=== PATIENT | female | born 1965 | race Caucasian/White ===

== ENCOUNTER 2016-07-09 10:54 | Outpatient (CLI) | END 2016-07-09 10:55 | disposition home or self-care (01) ==

== ENCOUNTER 2017-01-11 11:16 | Outpatient (CLI) | payer MEDICARE, MEDICAID ==
--- NOTE | 2017-01-11 14:05 | XRAY Report ---
TWO-VIEW CHEST: 01/11/2017 CLINICAL INDICATION: Cough. COMPARISON: 10/02/2015 FINDINGS: Frontal and lateral views of the chest demonstrate a normal cardiac silhouette. The lungs remain hyperinflated, compatible with COPD. No new consolidation, effusion, or pneumothorax is evid ent. IMPRESSION: STABLE COPD. NO SIGNIFICANT INTERVAL CHANGE. JOB #: [id number] EXT JOB #:[id number]
== END 2017-01-11 11:17 | disposition home or self-care (01) ==
LOC: DI.S 11:16
PROVIDERS: ATTEND Nurse Practitioner Family
DX: J44.9 Chronic obstructive pulmonary disease, unspecified (principal)
CPT/HCPCS: 71020

== ENCOUNTER 2017-02-03 10:42 | Outpatient (CLI) | payer MEDICARE, MEDICAID ==
--- NOTE | 2017-02-03 13:35 | XRAY Report ---
THREE VIEW RIGHT ANKLE: 02/03/2017 CLINICAL INDICATION: Joint pain. FINDINGS: AP, lateral, and oblique views of the right ankle demonstrate no evidence of fracture or d islocation. The joint spaces are preserved. No radiopaque foreign body is seen in the soft tissues. M ild osteoarthritis is noted. IMPRESSION: MILD OSTEOARTHRITIC CHANGES. NO EVIDENCE OF FRACTURE. JOB #: [id number] EXT JOB #:[id number]
== END 2017-02-03 10:43 | disposition home or self-care (01) ==
LOC: DI.S 10:42
PROVIDERS: ATTEND Nurse Practitioner Family
DX: M19.071 Primary osteoarthritis, right ankle and foot (principal)

== ENCOUNTER 2017-11-05 11:24 | Outpatient (CLI) | payer MEDICARE, MEDICAID ==
[2017-11-05 18:18] LABS: ALBUMIN 4.3 g/dL (3.2-5.5); ALBUMIN/GLOBULIN RATIO 1.6 (1.0-2.2); BILIRUBIN,TOTAL 0.5 mg/dL (0.2-1.0); CALCIUM 9.3 mg/dL (8.5-10.3); CREATININE 0.7 mg/dL (0.4-1.0)
[2017-11-08 12:31] LABS: HEPATITIS B SURFACE ANTIGEN NON-REACTIVE (NON-REACTIVE); HEPATITIS C ANTIBODY REACTIVE (NON-REACTIVE)
[2017-11-10 15:15] LABS: HCV RNA QNT 5.26 Log IU/mL (NOT DETECTED); HCV RNA QUANT RT PCR 184000 IU/mL (NOT DETECTED)
== END 2017-11-05 11:25 | disposition home or self-care (01) ==
LOC: LAB.F 11:24
PROVIDERS: ATTEND Nurse Practitioner Family
DX: B19.20 Unspecified viral hepatitis C without hepatic coma (principal); R53.83 Other fatigue
CPT/HCPCS: 36415; 80053; 82977; 83540; 84466; 86317; 86704; 86709; 86803; 87340; 87522

== ENCOUNTER 2017-11-17 12:34 | Outpatient (CLI) | payer MEDICARE, MEDICAID ==
[2017-11-17 20:06] LABS: HB2 TOTAL 14.2 g/dL; HEMOGLOBIN A1C 0.55 g/dL; HEMOGLOBIN A1C % 5.7 % (4.6-6.2)
== END 2017-11-17 12:35 | disposition home or self-care (01) ==
LOC: LAB.F 12:34
PROVIDERS: ATTEND Nurse Practitioner Family
DX: R73.9 Hyperglycemia, unspecified (principal)
CPT/HCPCS: 36415; 83036

== ENCOUNTER 2017-11-30 12:17 | Outpatient (CLI) | payer MEDICARE, MEDICAID ==
--- NOTE | 2017-11-30 15:21 | XRAY Report ---
RIGHT RIBS WITH FRONTAL CHEST: 11/30/2017 CLINICAL INDICATION: Right rib pain. FINDINGS: Frontal view of the chest and oblique views of the right ribs were obtained, with a marker at the site of maximal tenderness. There is a minimally displaced fracture of the right 7th rib anteriorly. No pneumothorax is present. The lungs are clear. IMPRESSION: MINIMALLY DISPLACED FRACTURE OF THE RIGHT 7TH RIB ANTERIORLY. NO PNEUMOTHORAX. TD: 11/30/2017 15:15
== END 2017-11-30 12:18 | disposition home or self-care (01) ==
LOC: DI.S 12:17
PROVIDERS: ATTEND Nurse Practitioner Family
DX: S22.31XA Fracture of one rib, right side, initial encounter for closed fracture (principal)

== ENCOUNTER 2018-05-05 16:19 | Outpatient (CLI) | payer MEDICARE, MEDICAID ==
--- NOTE | 2018-05-06 09:50 | XRAY Report ---
Reason: COPD,ACUTE EXACERBATION Procedure Date: 05/05/2018 Accession Number: [id number] / [id number] Procedure: XR - Chest 2 View X-Ray CPT Code: 69159 FULL RESULT: EXAM: CHEST RADIOGRAPHY EXAM DATE: 05/05/2018 04:39 PM. CLINICAL HISTORY: COPD, acute exacerbation. COMPARISON: 11/30/2017 12:36 PM. TECHNIQUE: 2 views. FINDINGS: Lungs/Pleura: Interval development of subtle bibasilar opacities compatible with airspace disease as well as trace pleural effusions in the setting of increased lung volumes and flattened diaphragms compatible with known history of COPD. No pneumothorax. Mediastinum: Heart and mediastinal contours are stable. Other: None. IMPRESSION: Bibasilar patchy new airspace disease on background of COPD. RADIA
== END 2018-05-05 16:20 | disposition home or self-care (01) ==
LOC: DI 16:19
PROVIDERS: ATTEND Nurse Practitioner Family
DX: J98.4 Other disorders of lung (principal); J44.1 Chronic obstructive pulmonary disease with (acute) exacerbation
CPT/HCPCS: 71046

== ENCOUNTER 2018-09-05 14:52 | Emergency (ER) | payer MEDICARE, MEDICAID ==
[2018-09-05 15:38] VITALS: BP 98/67
--- NOTE | 2018-09-05 16:39 | XRAY Report ---
Reason: cough for a week Procedure Date: 09/05/2018 Accession Number: [id number] / [id number] Procedure: XR - Chest 2 View X-Ray CPT Code: 43019 FULL RESULT: EXAM: CHEST RADIOGRAPHY EXAM DATE: 09/05/2018 04:29 PM. CLINICAL HISTORY: Cough for a week. COMPARISON: CHEST 2 VIEW 05/05/2018 4:39 PM. TECHNIQUE: 2 views. FINDINGS: Lungs/Pleura: Hyperexpanded with flattened diaphragm and coarse lung markings typical for COPD or asthma. No definite localized infiltrate, consolidation, effusion, or pneumothorax. Subtle acute infiltrate difficult to exclude. Mediastinum: Heart and mediastinal contours are unremarkable. Other: Osteopenia, mild degenerative changes, old anterior compression fracture of T12. IMPRESSION: Chronic findings. No definite acute disease. RADIA
== END 2018-09-05 17:59 | disposition left against medical advice (07) ==
LOC: ED 14:52
DX: M79.10 Myalgia, unspecified site (principal); R05 Cough; R09.81 Nasal congestion; Z53.21 Procedure and treatment not carried out due to patient leaving prior to being seen by health care provider
CPT/HCPCS: 71046

== ENCOUNTER 2019-07-28 07:00 | Outpatient (CLI) | payer MEDICARE, MEDICAID | END 2019-07-28 23:59 | disposition home or self-care (01) | LOC: LAB.R 07:00 | PROVIDERS: ATTEND Physician Assistant | DX: B19.20 Unspecified viral hepatitis C without hepatic coma (principal) | CPT/HCPCS: 82274 ==

== ENCOUNTER 2019-07-28 10:58 | Outpatient (CLI) | payer MEDICARE, MEDICAID ==
--- NOTE | 2019-07-28 14:39 | Ultrasound Report ---
Reason: HEPATITIS C Procedure Date: 07/28/2019 Accession Number: [id number] / [id number] Procedure: US - Abdomen Limited CPT Code: Final Report FULL RESULT: EXAM: ABDOMEN ULTRASOUND LIMITED, RUQ EXAM DATE: 07/28/2019 12:13 PM. CLINICAL HISTORY: Hepatitis C. Intermittent epigastric pain. Cramping. COMPARISON: None. TECHNIQUE: Real-time scanning was performed with static images obtained. FINDINGS: Liver: Coarse and echogenic hepatic parenchyma. No hepatic lesions. No intrahepatic ductal dilatation. No significant nodularity is identified. 14.1 cm. Main portal vein flow: Hepatopetal. Gallbladder: Normal. No stones, wall thickening, or sonographic Snyder's sign. Biliary System: CBD measures 7 mm. No intrahepatic or extrahepatic ductal dilatation. Other: Visualized pancreas is unremarkable. Pancreatic duct measures 2-3 mm. Right kidney is normal in contour and echotexture and measures 10.8 cm. Prominent extrarenal pelvis. No hydronephrosis. No renal masses or renal calculi. IMPRESSION: 1. Coarse heterogeneous hepatic parenchyma, findings which may be the result of the patient's history of hepatitis C. No significant hepatic nodularity. No hepatic lesions. 2. Normal gallbladder. RADIA
== END 2019-07-28 10:59 | disposition home or self-care (01) ==
LOC: DI 10:58
PROVIDERS: ATTEND Physician Assistant
DX: B19.20 Unspecified viral hepatitis C without hepatic coma (principal)
CPT/HCPCS: 36415; 76705; 86709; 86803; 87902

== ENCOUNTER 2019-11-16 08:21 | Outpatient (CLI) | payer MEDICARE, MEDICAID | END 2019-11-16 08:22 | disposition EMS.NT | LOC: EMS 08:21 | PROVIDERS: ATTEND Surgery | DX: M54.9 Dorsalgia, unspecified (principal) ==

== ENCOUNTER 2019-11-28 14:42 | Outpatient (CLI) | payer MEDICARE, MEDICAID | END 2019-11-28 14:43 | disposition EMS.NT | LOC: EMS 14:42 | PROVIDERS: ATTEND Surgery | DX: Z03.89 Encounter for observation for other suspected diseases and conditions ruled out (principal) ==

== ENCOUNTER 2019-12-11 07:00 | Outpatient (CLI) | payer MEDICARE, MEDICAID | END 2019-12-11 23:59 | disposition home or self-care (01) | LOC: LAB.R 07:00 | PROVIDERS: ATTEND Physician Assistant Medical | DX: Z20.818 Contact with and (suspected) exposure to other bacterial communicable diseases (principal); J44.1 Chronic obstructive pulmonary disease with (acute) exacerbation | CPT/HCPCS: 81599 ==

== ENCOUNTER 2019-12-11 08:00 | Outpatient (CLI) | payer MEDICARE, MEDICAID ==
--- NOTE | 2019-12-11 10:30 | XRAY Report ---
Reason: RIB PAIN Procedure Date: 12/11/2019 Accession Number: [id number] / [id number] Procedure: XRS - Chest 2 View X-Ray CPT Code: 26897 Final Report FULL RESULT: PROCEDURE: Chest 2 View X-Ray INDICATIONS: RIB PAIN TECHNIQUE: 2 view(s) of the chest. COMPARISON: CXR 09/05/2018. FINDINGS: Surgical changes and devices: None. Lungs and pleura: No pleural effusions or pneumothorax. Lungs are clear. Emphysematous change. Mediastinum: Mediastinal contours are normal. Heart size is normal. Bones and chest wall: No suspicious bony abnormalities. Anterior wedging of the thoracolumbar spine vertebral bodies x2, unchanged. Soft tissues appear unremarkable. IMPRESSION: No acute cardiopulmonary abnormality. Emphysematous change. Reviewed by: Hank Zuñiga MD on 12/11/2019 10:28 AM PDT Approved by: Hank Zuñiga MD on 12/11/2019 10:28 AM PDT Station ID: [id number]
--- NOTE | 2019-12-11 10:31 | XRAY Report ---
Reason: RIB PAIN Procedure Date: 12/11/2019 Accession Number: [id number] / [id number] Procedure: XRS - Ribs 2 View LT CPT Code: Final Report FULL RESULT: PROCEDURE: Ribs 2 View LT INDICATIONS: RIB PAIN TECHNIQUE: 2 view(s) of the left ribs. COMPARISON: Same day CXR FINDINGS: Surgical changes and devices: None. Skin markers overlying the inferior left ribs. Lungs and pleura: No pleural effusions or pneumothorax. Lungs are clear. Mediastinum: Mediastinal contours are normal. Heart size is normal. Bones and chest wall: No displaced left rib fractures identified. No suspicious bony abnormalities. Soft tissues appear unremarkable. IMPRESSION: No displaced left rib fractures identified. Reviewed by: Hank Zuñiga MD on 12/11/2019 10:30 AM PDT Approved by: Hank Zuñiga MD on 12/11/2019 10:30 AM PDT Station ID: [id number]
== END 2019-12-11 23:59 | disposition home or self-care (01) ==
LOC: DI.S 08:00
PROVIDERS: ATTEND Physician Assistant Medical
DX: R07.81 Pleurodynia (principal); J43.9 Emphysema, unspecified
CPT/HCPCS: 71046

== ENCOUNTER 2020-01-14 14:31 | Outpatient (CLI) | payer MEDICARE, MEDICAID ==
[2020-01-14 17:39] LABS: BASOPHILS # (AUTO) 0.1 10^3/uL (0.0-0.1); BASOPHILS % (AUTO) 1.2 %; EOSINOPHILS # (AUTO) 0.1 10^3/uL (0.0-0.7); EOSINOPHILS % (AUTO) 2.1 %; LYMPHOCYTES # (AUTO) 1.5 10^3/uL (1.5-3.5); LYMPHOCYTES % (AUTO) 26.2 %; MEAN CORPUSCULAR HEMOGLOBIN 30.3 pg (27.0-31.0); MEAN CORPUSCULAR HGB CONC 31.3 g/dL (32.0-36.0); MEAN CORPUSCULAR VOLUME 96.8 fL (81.0-99.0); MEAN PLATELET VOLUME 9.2 fL (7.9-10.8); MONOCYTES # (AUTO) 0.4 10^3/uL (0.0-1.0); MONOCYTES % (AUTO) 7.2 %; NEUTROPHILS # (AUTO) 3.7 10^3/uL (1.5-6.6); NEUTROPHILS % (AUTO) 62.8 %; PLT - PLATELET COUNT 352 10^3/uL (130-450); RED BLOOD COUNT 4.62 10^6/uL (4.20-5.40); RED CELL DISTRIBUTION WIDTH 12.7 % (12.0-15.0); WHITE BLOOD COUNT 5.8 x10^3/uL (4.8-10.8)
[2020-01-14 17:56] LABS: ALBUMIN 3.9 g/dL (3.2-5.5); ALBUMIN/GLOBULIN RATIO 1.4 (1.0-2.2); BILIRUBIN,TOTAL 0.3 mg/dL (0.2-1.0); CALCIUM 8.5 mg/dL (8.5-10.3); CREATININE 0.5 mg/dL (0.4-1.0); TOTAL PROTEIN 6.7 g/dL (6.7-8.2)
[2020-01-16 12:24] LABS: HEPATITIS B SURFACE ANTIGEN NON-REACTIVE (NON-REACTIVE)
== END 2020-01-14 14:32 | disposition home or self-care (01) ==
LOC: LAB.S 14:31
PROVIDERS: ATTEND Physician Assistant
DX: B19.20 Unspecified viral hepatitis C without hepatic coma (principal)
CPT/HCPCS: 36415; 80053; 85025; 86317; 86704; 86708; 86709; 87340; 87389; 87522; 87902

== ENCOUNTER 2020-03-26 14:56 | Outpatient (CLI) | payer MEDICARE, MEDICAID ==
[2020-03-26 20:14] LABS: BILIRUBIN,DIRECT 0.1 mg/dL (0.1-0.5); BILIRUBIN,TOTAL 0.7 mg/dL (0.2-1.0); TOTAL PROTEIN 7.4 g/dL (6.7-8.2)
== END 2020-03-26 14:57 | disposition home or self-care (01) ==
LOC: LAB.S 14:56
PROVIDERS: ATTEND Physician Assistant
DX: R94.5 Abnormal results of liver function studies (principal); B19.20 Unspecified viral hepatitis C without hepatic coma
CPT/HCPCS: 36415; 80076; 87522

== ENCOUNTER 2020-10-24 08:00 | Outpatient (CLI) | payer MEDICARE, MEDICAID ==
--- NOTE | 2020-10-24 16:34 | XRAY Report ---
PROCEDURE: Hand 3 View LT INDICATIONS: LEFT HAND PAIN TECHNIQUE: 4 views of the hand(s) acquired. COMPARISON: None. FINDINGS: Bones: No fractures or dislocations. No suspicious bony lesions. Chronic corticated ossicle seen p rojecting adjacent to the ulnar styloid which could be old fracture fragment versus loose body. First CMC and triscaphe joint degeneration. Soft tissues: No suspicious soft tissue calcifications. IMPRESSION: Degenerative changes as above, including possible remote fracture fragment versus loose body adjacent to the ulnar styloid. Reviewed by: Bean Garcia MD on 10/24/2020 4:32 PM PDT Approved by: Bean Garcia MD on 10/24/2020 4:32 PM PDT Station ID: [id number]
== END 2020-10-24 23:59 | disposition home or self-care (01) ==
LOC: DI.S 08:00
PROVIDERS: ATTEND Physician Assistant
DX: M18.12 Unilateral primary osteoarthritis of first carpometacarpal joint, left hand (principal); R93.6 Abnormal findings on diagnostic imaging of limbs

== ENCOUNTER 2021-04-09 10:17 | Outpatient (CLI) | payer MEDICARE, MEDICAID ==
--- NOTE | 2021-04-09 16:57 | XRAY Report ---
PROCEDURE: Chest 2 View X-Ray INDICATIONS: BACK PAIN TECHNIQUE: 2 view(s) of the chest. COMPARISON: CT of chest dated 02/12/2020. FINDINGS: Surgical changes and devices: None. Lungs and pleura: No pleural effusions or pneumothorax. Lungs are clear. Mediastinum: Mediastinal contours are normal. Heart size is normal. Bones and chest wall: Chronic appearing anterior wedge compression deformity involving lower thoracic /lumbar spine vertebral body is again seen unchanged from previous CT chest study dated 02/12/2020. De generative disc disease throughout thoracic spine is seen. Soft tissues appear unremarkable. IMPRESSION: No acute cardiopulmonary pathology. Chronic appearing anterior wedge compression deformi ty involving lower thoracic spine and upper lumbar spine unchanged from prior study. Reviewed by: Raudel Esparza MD on 04/09/2021 4:56 PM PDT Approved by: Raudel Esparza MD on 04/09/2021 4:56 PM PDT Station ID: [id number]
== END 2021-04-09 10:19 ==
LOC: DI.S 10:17
PROVIDERS: ATTEND Physician Assistant Medical
DX: R05.9 Cough, unspecified (principal); M54.9 Dorsalgia, unspecified; Z20.822 Contact with and (suspected) exposure to COVID-19
CPT/HCPCS: 71046; U0004

== ENCOUNTER 2021-09-19 08:00 | Outpatient (CLI) | payer MEDICARE, MEDICAID ==
--- NOTE | 2021-09-19 19:25 | XRAY Report ---
PROCEDURE: Ribs w/PA Chest RT INDICATIONS: CONTUSION OF RIGHT BACK WALL OF THORAX TECHNIQUE: 4 views of the right ribs were acquired, along with a single view chest. COMPARISON: 2 view chest x-ray 04/09/2021 FINDINGS: Surgical changes and devices: None. Bones and chest wall: No fractures or dislocations. No suspicious bony lesions. Overlying soft tis sues appear unremarkable. Lungs and pleura: No pleural effusions or pneumothorax. Lungs appear clear. Mediastinum: Mediastinal contours appear normal. Heart size is normal. IMPRESSION: No displaced rib fracture. No acute cardiopulmonary disease process. Reviewed by: Sofy Gonzalez MD, PhD on 09/19/2021 7:23 PM PDT Approved by: Sofy Gonzalez MD, PhD on 09/19/2021 7:23 PM PDT Station ID: [id number]
== END 2021-09-19 23:59 ==
LOC: DI.S 08:00
PROVIDERS: ATTEND Emergency Medicine
DX: S20.221A Contusion of right back wall of thorax, initial encounter (principal)

== ENCOUNTER 2021-12-21 15:13 | Outpatient (CLI) | payer MEDICARE, MEDICAID | END 2021-12-21 15:14 | disposition critical access hospital (66) | LOC: EMS 15:13 | DX: R41.82 Altered mental status, unspecified (principal); R46.89 Other symptoms and signs involving appearance and behavior; Z72.89 Other problems related to lifestyle | CPT/HCPCS: A0425; A0429 ==

== ENCOUNTER 2021-12-21 15:48 | Emergency (ER) | payer MEDICARE, MEDICAID ==
[2021-12-21] MEDS ORDERED: IPRATROPIUM/ALBUTEROL 3 ML NEB INH STA (16:10)
[2021-12-21] MEDS ORDERED: NALOXONE HCL NASAL SPRAY KIT NAS STA (16:44)
--- NOTE | 2021-12-21 16:54 | ED Physician Documentation ---
History of Present Illness - Stated complaint Stated Complaint: AMS - Chief complaint Chief Complaint: Neuro - History obtained from History obtained from: Patient, EMS - History of Present Illness Timing: Today Pain level max: 0 Pain level now: 0 - Additonal information Additional information: Patient is a 56-year-old female who states that she uses heroin and today she states that she did two "hits" of heroin. Apparently her mother found her with decreased responsiveness and called 911. The patient's was reportedly mild drowsy upon EMSs arrival but soon fully awakened. No Narcan was given. Patient initially refused transport to the hospital but then agreed to come to the hospital. Patient states that she feels mildly short of breath sometimes her inhalers help and she has a history of COPD. Not currently feeling short of breath or chest pain. No headache. No other complaints. Does not want to go to rehab. Nothing makes it better or worse Review of Systems Ten Systems: 10 systems reviewed and negative Constitutional: denies: Fever Respiratory: denies: Cough GI: denies: Nausea, Vomiting, Diarrhea Skin: denies: Rash Musculoskeletal: denies: Neck pain, Back pain Neurologic: denies: Headache PD PAST MEDICAL HISTORY - Past Medical History Past Medical History: Yes Cardiovascular: None Respiratory: COPD, Emphysema Endocrine/Autoimmune: None GI: GERD CLIENT LEADER: None : Incontinence HEENT: None Psych: Other Musculoskeletal: Osteoarthritis, Osteoporosis, Chronic back pain - Past Surgical History Past Surgical History: Yes Ortho: Hip replacement, Spine surgery /CLIENT LEADER: Other - Present Medications Home Medications: Ambulatory Orders Medication Instructions Recorded Confirmed Ibuprofen [Motrin] 600 mg PO Q6H PRN #30 tab 10/07/13 05/28/14 Omeprazole 20 mg PO DAILY 10/07/13 05/28/14 Solifenacin Succinate [Vesicare] 10 mg PO DAILY 10/07/13 05/28/14 Venlafaxine ER [Effexor ER] 150 mg PO DAILY 10/07/13 12/21/21 Albuterol Sulfate [Proair Hfa 1 - 2 puffs INH Q4H PRN 12/21/21 12/21/21 Inhaler] Fluticasone/Vilanterol [Breo 1 puffs IH DAILY 12/21/21 12/21/21 Ellipta 100-25 Mcg INH] Ipratropium/Albuterol [Duoneb] 3 ml INH Q6H PRN #30 vial 12/21/21 buPROPion HCL [Bupropion Xl] 150 mg PO DAILY 12/21/21 12/21/21 - Allergies Allergies/Adverse Reactions: Allergies Allergy/AdvReac Type Severity Reaction Status Date / Time acetaminophen AdvReac Severe migraines Verified 12/21/21 16:07 [From Darvocet-N 100] propoxyphene napsylate * AdvReac Severe migraines Verified 12/21/21 16:07 [From DarPROLOR Biotechcet-N 100] - Social History Does the pt smoke?: Yes Smoking Status: Current every day smoker Does the pt drink ETOH?: No Does the pt have substance abuse?: Yes Substance Use and Type: Heroin - Immunizations Immunizations are current?: Yes PD ED PE NORMAL - Vitals Vital signs reviewed: Yes - General General: Alert and oriented X 3, No acute distress, Well developed/nourished - HEENT HEENT: PERRL, Moist mucous membranes, Pharynx benign - Neck Neck: Supple, no meningeal sign - Cardiac Cardiac: RRR, No murmur - Respiratory Respiratory: No respiratory distress, Other (Mild wheezing bilaterally) - Abdomen Abdomen: Soft, Non tender, Non distended - Derm Derm: Warm and dry - Extremities Extremities: No edema - Neuro Neuro: Alert and oriented X 3 - Psych Psych: Normal mood, Normal affect Results - Vitals Vitals: Vital Signs - 24 hr 12/21/21 12/21/21 12/21/21 15:58 16:13 16:39 Temperature 37.0 C Heart Rate 101 H 86 78 Respiratory 16 22 20 Rate Blood Pressure 134/99 H 107/80 O2 Saturation 100 100 12/21/21 17:06 Temperature 36.9 C Heart Rate 105 H Respiratory 18 Rate Blood Pressure 114/84 H O2 Saturation 100 Oxygen O2 Source Room air PD MEDICAL DECISION MAKING - ED course Complexity details: reviewed results, re-evaluated patient, considered differential, d/w patient ED course: Patient was given a DuoNeb treatment and her wheezing resolved. Feels much better. She does not want to go to rehab or detox. Resources were given to the patient. Patient was dispensed a Narcan kit. Patient is otherwise asymptomatic. We will prescribe DuoNeb treatments for her nebulizer machine at home. Patient counseled regarding signs and symptoms for which I believe and urgent re-evaluation would be necessary. Patient with good understanding of and agreement to plan and is comfortable going home at this time This document was made in part using voice recognition software. While efforts are made to proofread this document, sound alike and grammatical errors may occur. Patient is not suicidal or homicidal. Departure - Departure Disposition: 01 Home, Self Care Clinical Impression: Heroin abuse Condition: Good Instructions: ED Narcotic Abuse Follow-Up: HUGO JUAREZ ARNP [Physician No Access] - Within 1 week Prescriptions: Ipratropium/Albuterol [Duoneb] 3 ml INH Q6H PRN #30 vial PRN Reason: dyspnea Comments: Please follow-up with your doctor for further care. Return if you worsen. Your prescription was sent to [facility] in [place]. You are also given naloxone tonight to take home with you. [facility] [address] [address] Discharge Date/Time: 12/21/21 17:10
[2021-12-21 17:07] VITALS: BP 114/84
== END 2021-12-21 17:10 | disposition home or self-care (01) ==
LOC: EDUNIT# → ED 15:48
DX: F11.10 Opioid abuse, uncomplicated (principal); F17.200 Nicotine dependence, unspecified, uncomplicated
CPT/HCPCS: 94640; 99283; G2215

== ENCOUNTER 2022-01-27 11:32 | Outpatient (CLI) | payer MEDICARE, MEDICAID ==
--- NOTE | 2022-01-27 18:20 | XRAY Report ---
PROCEDURE: Thoracic Spine 2 View INDICATIONS: BACK PAIN, THORACIC REGION TECHNIQUE: 4 views of the thoracic spine were acquired. COMPARISON: Chest radiograph dated 04/09/2021 FINDINGS: Bones: Diffuse osteopenia. No acute compression fractures or dislocations. No suspicious bony lesio ns. 12 pairs of ribs are noted, and appear intact where visualized. Redemonstration of chronic ante rior compression deformity of a lower thoracic vertebral body at L1 level. This is not definitively c hanged. New chronic appearing anterior compression deformity of T11. Multilevel thoracic spondylosis seen throughout the imaged spine. Straightening of thoracic kyphosis. Soft tissues: No paravertebral stripe thickening. IMPRESSION: Thoracic spine without acute fracture. Diffuse osteopenia. No acute compression fractures identified. However, there is a new chronic appearing anterior compression deformity of the T11 vertebral body. Stable appearance of anterior compression fracture of L1. Moderate multilevel thoracic spondylosis. Reviewed by: Kermit Keller MD on 01/27/2022 6:19 PM PDT Approved by: Kermit Keller MD on 01/27/2022 6:19 PM PDT Station ID: [id number]
== END 2022-01-27 11:33 | disposition home or self-care (01) ==
LOC: DI.S 11:32
PROVIDERS: ATTEND Registered Nurse
DX: M85.88 Other specified disorders of bone density and structure, other site (principal); M48.54XA Collapsed vertebra, not elsewhere classified, thoracic region, initial encounter for fracture

== ENCOUNTER 2022-04-08 08:00 | Outpatient (CLI) | payer MEDICARE, MEDICAID ==
--- NOTE | 2022-04-08 16:03 | XRAY Report ---
PROCEDURE: Chest 2 View X-Ray INDICATIONS: CHEST PAIN TECHNIQUE: 2 view(s) of the chest. COMPARISON: Chest x-ray 01/27/2022, x-ray spine 01/27/2022 FINDINGS: Surgical changes and devices: None. Lungs and pleura: No pleural effusions or pneumothorax. Lungs are clear. Mediastinum: Mediastinal contours are normal. Heart size is normal. Bones and chest wall: No suspicious bony abnormalities. Soft tissues appear unremarkable. Lower th oracic compression deformity is noted, unchanged 01/27/22. IMPRESSION: No acute pulmonary process. Reviewed by: Dinora Escobar MD on 04/08/2022 4:02 PM PDT Approved by: Dinora Escobar MD on 04/08/2022 4:02 PM PDT Station ID: [id number]
== END 2022-04-08 08:01 | disposition home or self-care (01) ==
LOC: DI.S 08:00
PROVIDERS: ATTEND Physician Assistant
DX: R07.2 Precordial pain (principal); Z87.09 Personal history of other diseases of the respiratory system

== ENCOUNTER 2022-08-02 09:54 | Outpatient (CLI) | payer MEDICARE, MEDICAID | END 2022-08-02 09:55 | disposition critical access hospital (66) | LOC: EMS 09:54 | DX: R06.02 Shortness of breath (principal); R07.89 Other chest pain; R05.9 Cough, unspecified; Z99.81 Dependence on supplemental oxygen | CPT/HCPCS: A0425; A0429 ==

== ENCOUNTER 2022-08-19 11:51 | Emergency (ER) | payer MEDICARE, MEDICAID ==
--- OUTSIDE RECORDS SUMMARY | 2022-08-19 12:56 | EXTERNAL MEDICAL SUMMARY RPT | Continuity of Care Document ---
:1965 Author Organization [place] Address [address] [place] [address] Phone Care Team Providers Name Role Phone Unavailable Unavailable Unavailable Doretha Franco Unavailable Unavailable Allergies No information. Encounters No information. Functional Status No information. Immunizations No information. Medications date description facility 2022-06-09 00:00 mupirocin [facility] [place] 2022-08-14 00:00 propranolol [facility] See 2022-07-29 00:00 prednisone [facility] See 2022-07-18 00:00 prednisone [facility] See 2022-06-09 00:00 buprenorphine-naloxone [facility] & Ancillary Services See 2022-06-10 00:00 buprenorphine-naloxone [facility] & [facility] Services See 2022-06-19 00:00 buprenorphine-naloxone [facility] & [facility] Services See 2022-07-10 00:00 buprenorphine-naloxone [facility] & [facility] Services See 2022-07-15 00:00 buprenorphine-naloxone [facility] & [facility] Services See 2022-07-16 00:00 buprenorphine-naloxone [facility] & [facility]illary Services See 2022-07-18 00:00 buprenorphine-naloxone [facility] & [facility] Services See 2022-07-27 00:00 buprenorphine-naloxone [facility] & Anc[facility] Services See 2022-07-29 00:00 buprenorphine-naloxone [facility] & [facility] Services See 2022-07-30 00:00 buprenorphine-naloxone [facility] & [facility] Services See 2022-08-02 00:00 buprenorphine-naloxone [facility] & [facility] Services See 2022-08-03 00:00 buprenorphine-naloxone [facility] & [facility] Services See 2022-08-12 00:00 buprenorphine-naloxone [facility] & [facility] Services See 2022-08-17 00:00 buprenorphine-naloxone [facility] & Anc[facility] Services See 2022-06-09 00:00 mupirocin [facility] See 2022-06-09 00:00 buprenorphine-naloxone [facility] & [facility] Services See 2022-06-10 00:00 buprenorphine-naloxone [facility] [place] 2022-06-19 00:00 buprenorphine-naloxone [facility] [place] 2022-07-10 00:00 buprenorphine-naloxone [facility] [place] 2022-07-15 00:00 buprenorphine-naloxone [facility] [place] 2022-07-16 00:00 buprenorphine-naloxone [facility] Services See 2022-07-18 00:00 buprenorphine-naloxone [facility] [place] 2022-07-27 00:00 buprenorphine-naloxone [facility] [place] 2022-07-29 00:00 buprenorphine-naloxone [facility] [place] 2022-07-30 00:00 buprenorphine-naloxone [facility] [place] 2022-08-02 00:00 buprenorphine-naloxone [facility] [place] 2022-08-03 00:00 buprenorphine-naloxone [facility] & Anc[facility] Services See 2022-08-12 00:00 buprenorphine-naloxone [facility] & Anc[facility] Services See 2022-08-17 00:00 buprenorphine-naloxone [facility] & Anc[facility] Services See 2022-07-15 00:00 omeprazole magnesium Walk[facility]In [facility] Care & Ancillary Services See 2022-07-29 00:00 prednisone [facility] See 2022-07-18 00:00 prednisone [facility] See 2022-08-14 00:00 propranolol [facility] See 2022-07-29 00:00 prednisone [facility] See 2022-07-29 00:00 prednisone [facility] See 2022-07-18 00:00 prednisone [facility] See 2022-06-09 00:00 mupirocin [facility] [place] [facility] & [facility] Services See 2022-07-18 00:00 prednisone [facility] See 2022-08-14 00:00 propranolol [facility] See 2022-06-09 00:00 clotrimazole Walk[facility] Care & Ancillary Services See 2022-06-09 00:00 buprenorphine-naloxone [facility] [place] 2022-06-10 00:00 buprenorphine-naloxone [facility] [place] 2022-06-19 00:00 buprenorphine-naloxone [facility] & [facility] [place] 2022-07-10 00:00 buprenorphine-naloxone [facility] & Ancillary Services See 2022-07-15 00:00 buprenorphine-naloxone [facility] & Ancillary Services See 2022-07-16 00:00 buprenorphine-naloxone [facility] & Ancillary Services See 2022-07-18 00:00 buprenorphine-naloxone [facility] & Ancillary Services See 2022-07-27 00:00 buprenorphine-naloxone [facility] Care & Ancillary Services See 2022-07-29 00:00 buprenorphine-naloxone [facility] & Ancillary Services See 2022-07-30 00:00 buprenorphine-naloxone [facility] & Anc[facility] Services See 2022-08-02 00:00 buprenorphine-naloxone [facility] & Ancillary Services See 2022-08-03 00:00 buprenorphine-naloxone [facility] & Ancillary Services See 2022-08-12 00:00 buprenorphine-naloxone [facility] & Anc[facility] Services See 2022-08-17 00:00 buprenorphine-naloxone [facility] & Ancillary Services See 2022-06-09 00:00 albuterol sulfate [facility] See 2022-06-09 00:00 albuterol sulfate [facility] See 2022-07-15 00:00 omeprazole magnesium [facility] & Anc[facility] Services See 2022-06-09 00:00 clotrimazole [facility] See 2022-07-15 00:00 omeprazole magnesium [facility] Services See 2022-06-09 00:00 buprenorphine-naloxone [facility] & Ancillary Services See 2022-06-10 00:00 buprenorphine-naloxone [facility] & Anc[facility] Services See 2022-06-19 00:00 buprenorphine-naloxone [facility] & Ancillary Services See 2022-07-10 00:00 buprenorphine-naloxone [facility] & Ancillary Services See 2022-07-15 00:00 buprenorphine-naloxone [facility] & Ancillary Services See 2022-07-16 00:00 buprenorphine-naloxone [facility] & Ancillary Services See 2022-07-18 00:00 buprenorphine-naloxone [facility] & Ancillary Services See 2022-07-27 00:00 buprenorphine-naloxone [facility] & Ancillary Services See 2022-07-29 00:00 buprenorphine-naloxone [facility] & Ancillary Services See 2022-07-30 00:00 buprenorphine-naloxone [facility] & Ancillary Services See 2022-08-02 00:00 buprenorphine-naloxone [facility] & Ancillary Services See 2022-08-03 00:00 buprenorphine-naloxone [facility] & Ancillary Services See 2022-08-12 00:00 buprenorphine-naloxone [facility] & Ancillary Services See 2022-08-17 00:00 buprenorphine-naloxone [facility] & Ancillary Services See 2022-06-09 00:00 albuterol sulfate [facility] See 2022-06-09 00:00 albuterol sulfate [facility] See 2022-08-14 00:00 propranolol [facility] See 2022-06-09 00:00 mupirocin Walk-In Clinic [facility] Care & Ancillary Services See 2022-06-09 00:00 clotrimazole Walk-In Clinic [facility] Care & Ancillary Services See Problems date description facility 2022-06-01 00:00 High risk drug monitoring Walk-In [facility] Primary Care & Ancillary Services [place] 2022-06-01 00:00 Long-term (current) use of other Walk- In Clinic Primary Care medications & Ancillary Services See 2022-06-01 00:00 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[facility]In [facility] Primary Care therapy & Ancillary Services See 2022-06-09 00:00 Chronic obstructive lung disease [facility] Care & Ancillary Services See 2022-06-09 00:00 Backache Walk-In Clinic [facility] Care & Ancillary Services See 2022-06-09 00:00 Repeated prescription [facility] Services [place] 2022-06-09 00:00 Spinal stenosis of lumbar region [facility]- [facility] Primary Care & Ancillary Services See 2022-06-09 00:00 Gastroesophageal reflux disease [facility] n [facility] Primary Care & Ancillary Services See 2022-06-09 00:00 Chronic constipation Walk[facility]In [facility] Care & Ancillary Services See 2022-06-09 00:00 Hallucinogen abuse, unspecified use [facility] & [facility]illary Services See 2022-06-09 00:00 Migraine, unspecified, without Walk-In Clinic Primary Care mention of intractable migraine, & Ancil heike Services See without mention of status migrainosus 2022-06-09 00:00 Carpal tunnel syndrome [facility]In [facility] Primary Care & Ancillary Services See 2022-06-09 00:00 History of substance abuse [facility] & Ancillary Services See 2022-06-09 00:00 Migraine Walk-In Clinic [facility] Care & Ancillary Services See 2022-06-09 00:00 Bone density finding Walk[facility]In [facility] Care & Ancillary Services See 2022-06-09 00:00 Asthma, unspecified Walk-In [facility] Care & Ancillary Services See 2022-06-09 00:00 Chronic airway obstruction, not Walk-I n Clinic Primary Care elsewhere classified & Ancillary Service s See 2022-06-09 00:00 Viral hepatitis C [facility] Services See 2022-06-09 00:00 Esophageal reflux [facility] Services See 2022-06-09 00:00 Nerve injury [facility] Services See 2022-06-09 00:00 Spinal stenosis of lumbar region Walk- In Clinic Primary Care without neurogenic claudication & Ancill [facility] Services See 2022-06-09 00:00 Backache, unspecified Walk[facility]In [facility] & Ancillary Services See 2022-06-09 00:00 Injury to nerves, unspecified site [facility] See 2022-06-09 00:00 Reactive airway disease [facility] Primary Care & Ancillary Services See 2022-06-09 00:00 Unspecified viral hepatitis C Walk-In Clinic Primary Care without hepatic coma & Ancillary Service s [place] 2022-06-09 00:00 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, in remission & Ancillary Ser vices See 2022-06-09 00:00 Borderline personality disorder [facility] Primary Care & Ancillary Services See 2022-06-09 00:00 Migraine, unspecified, not [facility]-In [facility] Primary Care intractable, without status & Ancillary Services See migrainosus 2022-06-09 00:00 Carpal tunnel syndrome, right upper [facility] Primary Care limb & Ancillary Services See 2022-06-09 00:00 Carpal tunnel syndrome, left upper [facility] limb & Ancillary Services See 2022-06-09 00:00 Chronic obstructive pulmonary Walk[facility]In Clinic Primary Care disease, unspecified & Ancillary Service s See 2022-06-09 00:00 Unspecified asthma, uncomplicated [facility] Primary Care & Ancillary Services See 2022-06-09 00:00 Gastro-esophageal reflux disease Walk- In Clinic Primary Care without esophagitis & Ancillary Services See 2022-06-09 00:00 Other constipation [facility] & [facility] Services See 2022-06-09 00:00 Spinal stenosis, lumbar region [facility]In [facility] Primary Care & Ancillary Services See 2022-06-09 00:00 Other dorsalgia [facility] [place] [facility] & [facility] Services See 2022-06-09 00:00 Other specified disorders of bone Walk -In Clinic Primary Care density and structure, right shoulder & Ancillary Services See 2022-06-09 00:00 Other injury of unspecified body Walk- In Clinic Primary Care region & Ancillary Services See 2022-06-09 00:00 Issue of repeat prescriptions [facility] Primary Care & Ancillary Services See 2022-06-09 00:00 Encounter for issue of repeat Walk[facility] Clinic Primary Care prescription & Ancillary Services See 2022-06-10 00:00 Chronic obstructive lung disease [facility]- In [facility] Primary Care & Ancillary Services See 2022-06-10 00:00 Backache Walk-In Clinic [facility] Care & Ancillary Services See 2022-06-10 00:00 Spinal stenosis of lumbar region [facility]- In [facility] Primary Care & Ancillary Services See 2022-06-10 00:00 Gastroesophageal reflux disease [facility] Primary Care & Ancillary Services See 2022-06-10 00:00 Chronic constipation Walk-In [facility] Care & Ancillary Services See 2022-06-10 00:00 Hallucinogen abuse, unspecified use [facility] Primary Care & Ancillary Services See 2022-06-10 00:00 Migraine, unspecified, without Walk[facility]In Clinic Primary Care mention of intractable migraine, & Ancil heike Services See without mention of status migrainosus 2022-06-10 00:00 Carpal tunnel syndrome [facility] Primary Care & Ancillary Services See 2022-06-10 00:00 History of substance abuse Walk-In [facility] Primary Care & Ancillary Services See 2022-06-10 00:00 Migraine Walk-In Clinic [facility] Care & Ancillary Services See 2022-06-10 00:00 Bone density finding Walk-In Clinic Pr [facility] Care & Ancillary Services See 2022-06-10 00:00 Asthma, unspecified Walk-In [facility] Care & Ancillary Services See 2022-06-10 00:00 Chronic airway obstruction, not Walk-I n Clinic Primary Care elsewhere classified & Ancillary Service s See 2022-06-10 00:00 Viral hepatitis C [facility] Services See 2022-06-10 00:00 Esophageal reflux [facility] Anc[facility] Services See 2022-06-10 00:00 Nerve injury [facility] Anc[facility] Services See 2022-06-10 00:00 Spinal stenosis of lumbar region Walk- In Clinic Primary Care without neurogenic claudication & Ancill priya Services See 2022-06-10 00:00 Backache, unspecified [facility] Care & Ancillary Services See 2022-06-10 00:00 Injury to nerves, unspecified site [facility] & [facility] Services See 2022-06-10 00:00 Reactive airway disease [facility] Primary Care & Ancillary Services See 2022-06-10 00:00 Unspecified viral hepatitis C Walk-In Clinic Primary Care without hepatic coma & Ancillary Service s [place] 2022-06-10 00:00 Other psychoactive substance Walk-In C linic Primary Care dependence, in remission & Ancillary Ser vices See 2022-06-10 00:00 Borderline personality disorder Walk-I [facility] Primary Care & Ancillary Services See 2022-06-10 00:00 Migraine, unspecified, not Walk-In [facility] Primary Care intractable, without status & Ancillary Services [place] migrainosus 2022-06-10 00:00 Carpal tunnel syndrome, right upper [facility] Primary Care limb & Ancillary Services See 2022-06-10 00:00 Carpal tunnel syndrome, left upper [facility] Primary Care limb & Ancillary Services See 2022-06-10 00:00 Chronic obstructive pulmonary Walk-In Clinic Primary Care disease, unspecified & Ancillary Service s [place] 2022-06-10 00:00 Unspecified asthma, uncomplicated [facility] Primary Care & Ancillary Services See 2022-06-10 00:00 Gastro-esophageal reflux disease Walk- In Clinic Primary Care without esophagitis & Ancillary Services See 2022-06-10 00:00 Other constipation Walk-In Clinic [facility] Care & Ancillary Services See 2022-06-10 00:00 Spinal stenosis, lumbar region Walk[facility]In Clinic Primary Care & Ancillary Services See 2022-06-10 00:00 Other dorsalgia [facility] & Ancillary Services See 2022-06-10 00:00 Other specified disorders of bone Walk -In Clinic Primary Care density and structure, right shoulder & Ancillary Services See 2022-06-10 00:00 Other injury of unspecified body Walk- In Clinic Primary Care region & Ancillary Services See 2022-06-19 00:00 Chronic obstructive lung disease Walk- In Clinic Primary Care & Ancillary Services See 2022-06-19 00:00 Backache [facility] & Ancillary Services See 2022-06-19 00:00 Spinal stenosis of lumbar region Walk- In [facility] Primary Care & Ancillary Services See 2022-06-19 00:00 Gastroesophageal reflux disease [facility] Primary Care & Ancillary Services See 2022-06-19 00:00 Chronic constipation [facility] & Ancillary Services See 2022-06-19 00:00 Hallucinogen abuse, unspecified use [facility] Primary Care & Ancillary Services See 2022-06-19 00:00 Migraine, unspecified, without Walk-In Clinic Primary Care mention of intractable migraine, & Ancil heike Services See without mention of status migrainosus 2022-06-19 00:00 Carpal tunnel syndrome [facility]In [facility] Primary Care & Ancillary Services See 2022-06-19 00:00 History of substance abuse Walk-In [facility] Primary Care & Ancillary Services See 2022-06-19 00:00 Migraine [facility] [place] [facility] & [facility] Services See 2022-06-19 00:00 Bone density finding [facility] & Ancillary Services See 2022-06-19 00:00 Asthma, unspecified Walk-In Clinic [facility] Care & Ancillary Services See 2022-06-19 00:00 Chronic airway obstruction, not Walk-I n Clinic Primary Care elsewhere classified & Ancillary Service s See 2022-06-19 00:00 Viral hepatitis C [facility] & Ancillary Services See 2022-06-19 00:00 Esophageal reflux [facility] & Ancillary Services See 2022-06-19 00:00 Nerve injury Walk-In Clinic [facility] Care & Ancillary Services See 2022-06-19 00:00 Spinal stenosis of lumbar region Walk- In Clinic Primary Care without neurogenic claudication & Ancill priya Services See 2022-06-19 00:00 Backache, unspecified [facility]In [facility] Care & Ancillary Services See 2022-06-19 00:00 Injury to nerves, unspecified site [facility] & Ancillary Services See 2022-06-19 00:00 Reactive airway disease [facility] Primary Care & Ancillary Services See 2022-06-19 00:00 Unspecified viral hepatitis C Walk-In Clinic Primary Care without hepatic coma & Ancillary Service s See 2022-06-19 00:00 Other psychoactive substance Walk-In C linic Primary Care dependence, in remission & Ancillary Ser vices See 2022-06-19 00:00 Borderline personality disorder [facility]I [facility] Primary Care & Ancillary Services [place] 2022-06-19 00:00 Migraine, unspecified, not Walk-In [facility] Primary Care intractable, without status & Ancillary Services [place] migrainosus 2022-06-19 00:00 Carpal tunnel syndrome, right upper [facility] Primary Care limb & Ancillary Services See 2022-06-19 00:00 Carpal tunnel syndrome, left upper [facility] Primary Care limb & Ancillary Services See 2022-06-19 00:00 Chronic obstructive pulmonary Walk-In Clinic Primary Care disease, unspecified & Ancillary Service s [place] 2022-06-19 00:00 Unspecified asthma, uncomplicated [facility] Primary Care & Ancillary Services See 2022-06-19 00:00 Gastro-esophageal reflux disease Walk- In Clinic Primary Care without esophagitis & Ancillary Services See 2022-06-19 00:00 Other constipation [facility] Care & Ancillary Services See 2022-06-19 00:00 Spinal stenosis, lumbar region [facility]In [facility] Primary Care & Ancillary Services See 2022-06-19 00:00 Other dorsalgia [facility] & Ancillary Services See 2022-06-19 00:00 Other specified disorders of bone Walk -In Clinic Primary Care density and structure, right shoulder & Ancillary Services See 2022-06-19 00:00 Other injury of unspecified body [facility]- In Clinic Primary Care region & Ancillary Services See 2022-07-10 00:00 Chronic obstructive lung disease Walk- In [facility] Primary Care & Ancillary Services See 2022-07-10 00:00 Backache [facility] & Ancillary Services See 2022-07-10 00:00 Spinal stenosis of lumbar region [facility]- In [facility] Primary Care & Ancillary Services See 2022-07-10 00:00 Gastroesophageal reflux disease [facility] Primary Care & Ancillary Services See 2022-07-10 00:00 Chronic constipation Walk-In [facility] Care & Ancillary Services See 2022-07-10 00:00 Hallucinogen abuse, unspecified use [facility] Primary Care & Ancillary Services See 2022-07-10 00:00 Migraine, unspecified, without Walk-In Clinic Primary Care mention of intractable migraine, & Ancil heike Services See without mention of status migrainosus 2022-07-10 00:00 Carpal tunnel syndrome Walk[facility]In [facility] Primary Care & Ancillary Services See 2022-07-10 00:00 History of substance abuse Walk-In [facility] Primary Care & Ancillary Services See 2022-07-10 00:00 Migraine Walk[facility]In [facility] Care & Ancillary Services See 2022-07-10 00:00 Bone density finding Walk-In [facility] Pr [facility] Care & Ancillary Services See 2022-07-10 00:00 Asthma, unspecified [facility] Care & Ancillary Services See 2022-07-10 00:00 Chronic airway obstruction, not Walk-I n Clinic Primary Care elsewhere classified & Ancillary Service s See 2022-07-10 00:00 Viral hepatitis C [facility] & Ancillary Services See 2022-07-10 00:00 Esophageal reflux [facility] & Ancillary Services See 2022-07-10 00:00 Nerve injury [facility] & Ancillary Services See 2022-07-10 00:00 Spinal stenosis of lumbar region Walk- In Clinic Primary Care without neurogenic claudication & Ancill priya Services See 2022-07-10 00:00 Backache, unspecified Walk-In [facility] Care & Ancillary Services See 2022-07-10 00:00 Injury to nerves, unspecified site [facility] & Ancillary Services See 2022-07-10 00:00 Reactive airway disease [facility] Primary Care & Ancillary Services See 2022-07-10 00:00 Unspecified viral hepatitis C Walk-In Clinic Primary Care without hepatic coma & Ancillary Service s See 2022-07-10 00:00 Other psychoactive substance Walk-In C linic Primary Care dependence, in remission & Ancillary Ser vices [place] 2022-07-10 00:00 Borderline personality disorder Walk[facility]I n Clinic Primary Care & Ancillary Services See 2022-07-10 00:00 Migraine, unspecified, not Walk-In [facility] Primary Care intractable, without status & Ancillary Services [place] migrainosus 2022-07-10 00:00 Carpal tunnel syndrome, right upper [facility] Primary Care limb & Ancillary Services See 2022-07-10 00:00 Carpal tunnel syndrome, left upper [facility] Primary Care limb & Ancillary Services See 2022-07-10 00:00 Chronic obstructive pulmonary Walk-In Clinic Primary Care disease, unspecified & Ancillary Service s [place] 2022-07-10 00:00 Unspecified asthma, uncomplicated Walk -In Clinic Primary Care & Ancillary Services See 2022-07-10 00:00 Gastro-esophageal reflux disease Walk- In Clinic Primary Care without esophagitis & Ancillary Services See 2022-07-10 00:00 Other constipation Walk-In Clinic [facility] Care & Ancillary Services See 2022-07-10 00:00 Spinal stenosis, lumbar region Walk-In Clinic Primary Care & Ancillary Services See 2022-07-10 00:00 Other dorsalgia Walk-In Clinic [facility] Care & Ancillary Services See 2022-07-10 00:00 Other specified disorders of bone Walk -In Clinic Primary Care density and structure, right shoulder & Ancillary Services See 2022-07-10 00:00 Other injury of unspecified body Walk- In Clinic Primary Care region & Ancillary Services See 2022-07-13 00:00 Muscle weakness Walk-In [facility] Care & Ancillary Services See 2022-07-13 00:00 Muscle weakness (generalized) Walk-In [facility] Primary Care & Ancillary Services See 2022-07-13 00:00 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, Walk-In Clinic Primary Care supplemental oxygen & Ancillary Services See 2022-07-13 00:00 Dependence on supplemental oxygen Walk -In Clinic Primary Care & Ancillary Services See 2022-07-15 00:00 Chronic obstructive lung disease Walk- In Clinic Primary Care & Ancillary Services See 2022-07-15 00:00 Backache Walk-In [facility] Care & Ancillary Services See 2022-07-15 00:00 Spinal stenosis of lumbar region Walk- In Clinic Primary Care & Ancillary Services See 2022-07-15 00:00 Gastroesophageal reflux disease Walk-I n Clinic Primary Care & Ancillary Services See 2022-07-15 00:00 Chronic constipation Walk-In Clinic [facility] Care & Ancillary Services See 2022-07-15 00:00 Hallucinogen abuse, unspecified use [facility] Primary Care & Ancillary Services See 2022-07-15 00:00 Migraine, unspecified, without Walk-In Clinic Primary Care mention of intractable migraine, & Ancil heike Services See without mention of status migrainosus 2022-07-15 00:00 Carpal tunnel syndrome Walk-In Clinic Primary Care & Ancillary Services See 2022-07-15 00:00 History of substance abuse Walk-In [facility] Primary Care & Ancillary Services See 2022-07-15 00:00 Migraine Walk-In [facility] Care & Ancillary Services See 2022-07-15 00:00 Bone density finding Walk-In Clinic [facility] Care & Ancillary Services See 2022-07-15 00:00 Asthma, unspecified Walk-In [facility] Care & Ancillary Services See 2022-07-15 00:00 Chronic airway obstruction, not Walk-I n Clinic Primary Care elsewhere classified & Ancillary Service s See 2022-07-15 00:00 Viral hepatitis C Walk-In Clinic [facility] Care & Ancillary Services See 2022-07-15 00:00 Esophageal reflux Walk-In [facility] Care & Ancillary Services See 2022-07-15 00:00 Nerve injury Walk-In [facility] Care & Ancillary Services See 2022-07-15 00:00 Spinal stenosis of lumbar region Walk- In Clinic Primary Care without neurogenic claudication & Ancill priya Services See 2022-07-15 00:00 Backache, unspecified Walk-In [facility] Care & Ancillary Services See 2022-07-15 00:00 Injury to nerves, unspecified site [facility] & Ancillary Services See 2022-07-15 00:00 Reactive airway disease Walk-In Clinic Primary Care & Ancillary Services [place] 2022-07-15 00:00 Unspecified viral hepatitis C Walk-In Clinic Primary Care without hepatic coma & Ancillary Service s [place] 2022-07-15 00:00 Other psychoactive substance Walk-In C linic Primary Care dependence, in remission & Ancillary Ser vices [place] 2022-07-15 00:00 Borderline personality disorder Walk-I n Clinic Primary Care & Ancillary Services [place] 2022-07-15 00:00 Migraine, unspecified, not Walk-In [facility] Primary Care intractable, without status & Ancillary Services [place] migrainosus 2022-07-15 00:00 Carpal tunnel syndrome, right upper [facility] Primary Care limb & Ancillary Services See 2022-07-15 00:00 Carpal tunnel syndrome, left upper [facility] Primary [facility] limb & Ancillary Services [place] 2022-07-15 00:00 Chronic obstructive pulmonary Walk-In Clinic Primary Care disease, unspecified & Ancillary Service s [place] 2022-07-15 00:00 Unspecified asthma, uncomplicated Walk -In Clinic Primary Care & Ancillary Services See 2022-07-15 00:00 Gastro-esophageal reflux disease Walk- In Clinic Primary Care without esophagitis & Ancillary Services See 2022-07-15 00:00 Other constipation Walk-In [facility] [place] [facility] Care & Ancillary Services See 2022-07-15 00:00 Spinal stenosis, lumbar region Walk-In Clinic Primary Care & Ancillary Services See 2022-07-15 00:00 Other dorsalgia Walk-In Clinic [place] [facility] Care & Ancillary Services See 2022-07-15 00:00 Other specified disorders of bone Walk -In Clinic Primary Care density and structure, right shoulder & Ancillary Services See 2022-07-15 00:00 Other injury of unspecified body Walk- In Clinic Primary Care region & Ancillary Services See 2022-07-16 00:00 Chronic obstructive lung disease Walk- In Clinic Primary Care & Ancillary Services See 2022-07-16 00:00 Backache Walk-In Clinic [facility] Care & Ancillary Services See 2022-07-16 00:00 Spinal stenosis of lumbar region Walk- In Clinic Primary Care & Ancillary Services See 2022-07-16 00:00 Gastroesophageal reflux disease Walk-I n Clinic Primary Care & Ancillary Services See 2022-07-16 00:00 Chronic constipation Walk-In Clinic [facility] Care & Ancillary Services See 2022-07-16 00:00 Hallucinogen abuse, unspecified use [facility] Primary Care & Ancillary Services See 2022-07-16 00:00 Migraine, unspecified, without Walk-In Clinic Primary Care mention of intractable migraine, & Ancil heike Services See without mention of status migrainosus 2022-07-16 00:00 Carpal tunnel syndrome Walk-In Clinic Primary Care & Ancillary Services See 2022-07-16 00:00 History of substance abuse Walk-In [facility] Primary Care & Ancillary Services See 2022-07-16 00:00 Migraine Walk-In [facility] Care & Ancillary Services See 2022-07-16 00:00 Bone density finding Walk-In Clinic [facility] Care & Ancillary Services See 2022-07-16 00:00 Asthma, unspecified [facility]In [facility] [place] [facility] Care & Ancillary Services See 2022-07-16 00:00 Chronic airway obstruction, not Walk-I n Clinic Primary Care elsewhere classified & Ancillary Service s See 2022-07-16 00:00 Viral hepatitis C Walk-In [facility] Care & Ancillary Services See 2022-07-16 00:00 Esophageal reflux Walk-In [facility] & Ancillary Services See 2022-07-16 00:00 Nerve injury Walk-In Clinic [facility] Care & Ancillary Services See 2022-07-16 00:00 Spinal stenosis of lumbar region Walk- In Clinic Primary Care without neurogenic claudication & Ancill priya Services See 2022-07-16 00:00 Backache, unspecified Walk-In Clinic [facility] Care & Ancillary Services See 2022-07-16 00:00 Injury to nerves, unspecified site [facility] & Ancillary Services See 2022-07-16 00:00 Reactive airway disease Walk-In Clinic Primary Care & Ancillary Services See 2022-07-16 00:00 Unspecified viral hepatitis C Walk-In Clinic Primary Care without hepatic coma & Ancillary Service s See 2022-07-16 00:00 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, in remission & Ancillary Ser vices See 2022-07-16 00:00 Borderline personality disorder Walk-I n Clinic Primary Care & Ancillary Services See 2022-07-16 00:00 Migraine, unspecified, not Walk-In [facility] Primary Care intractable, without status & Ancillary Services See migrainosus 2022-07-16 00:00 Carpal tunnel syndrome, right upper [facility] Clinic Primary Care limb & Ancillary Services See 2022-07-16 00:00 Carpal tunnel syndrome, left upper [facility] Primary Care limb & Ancillary Services See 2022-07-16 00:00 Chronic obstructive pulmonary Walk-In Clinic Primary Care disease, unspecified & Ancillary Service s See 2022-07-16 00:00 Unspecified asthma, uncomplicated Walk -In Clinic Primary Care & Ancillary Services See 2022-07-16 00:00 Gastro-esophageal reflux disease Walk- In Clinic Primary Care without esophagitis & Ancillary Services See 2022-07-16 00:00 Other constipation Walk-In [facility] Care & Ancillary Services See 2022-07-16 00:00 Spinal stenosis, lumbar region Walk-In Clinic Primary Care & Ancillary Services See 2022-07-16 00:00 Other dorsalgia Walk-In [facility] Care & Ancillary Services See 2022-07-16 00:00 Other specified disorders of bone Walk -In Clinic Primary Care density and structure, right shoulder & Ancillary Services See 2022-07-16 00:00 Other injury of unspecified body Walk- In Clinic Primary Care region & Ancillary Services See 2022-07-18 00:00 Chronic obstructive lung disease Walk- In Clinic Primary Care & Ancillary Services See 2022-07-18 00:00 Backache Walk-In [facility] & Ancillary Services See 2022-07-18 00:00 Spinal stenosis of lumbar region Walk- In Clinic Primary Care & Ancillary Services See 2022-07-18 00:00 Gastroesophageal reflux disease Walk-I n Clinic Primary Care & Ancillary Services See 2022-07-18 00:00 Chronic constipation [facility] & Ancillary Services See 2022-07-18 00:00 Hallucinogen abuse, unspecified use [facility] Primary Care & Ancillary Services See 2022-07-18 00:00 Migraine, unspecified, without Walk-In Clinic Primary Care mention of intractable migraine, & Ancil heike Services See without mention of status migrainosus 2022-07-18 00:00 Carpal tunnel syndrome Walk-In Clinic Primary Care & Ancillary Services See 2022-07-18 00:00 History of substance abuse Walk-In [facility] & Ancillary Services See 2022-07-18 00:00 Migraine Walk-In [facility] & Ancillary Services See 2022-07-18 00:00 Bone density finding Walk-In Clinic [facility] Care & Ancillary Services See 2022-07-18 00:00 Asthma, unspecified [facility]In [facility] [place] [facility] Care & Ancillary Services See 2022-07-18 00:00 Chronic airway obstruction, not Walk-I n Clinic Primary Care elsewhere classified & Ancillary Service s See 2022-07-18 00:00 Viral hepatitis C Walk-In [facility] Care & Ancillary Services See 2022-07-18 00:00 Esophageal reflux Walk-In [facility] & Ancillary Services See 2022-07-18 00:00 Nerve injury Walk-In [facility] & Ancillary Services See 2022-07-18 00:00 Spinal stenosis of lumbar region Walk- In Clinic Primary Care without neurogenic claudication & Ancill priya Services See 2022-07-18 00:00 Backache, unspecified Walk-In [facility] Care & Ancillary Services See 2022-07-18 00:00 Injury to nerves, unspecified site [facility] & Ancillary Services See 2022-07-18 00:00 Reactive airway disease Walk-In Clinic Primary Care & Ancillary Services See 2022-07-18 00:00 Unspecified viral hepatitis C Walk-In Clinic Primary Care without hepatic coma & Ancillary Service s See 2022-07-18 00:00 Other psychoactive substance Walk-In C linic Primary Care dependence, in remission & Ancillary Ser vices See 2022-07-18 00:00 Borderline personality disorder Walk-I n Clinic Primary Care & Ancillary Services See 2022-07-18 00:00 Migraine, unspecified, not Walk-In [facility] Primary Care intractable, without status & Ancillary Services See migrainosus 2022-07-18 00:00 Carpal tunnel syndrome, right upper [facility]-In Clinic Primary Care limb & Ancillary Services See 2022-07-18 00:00 Carpal tunnel syndrome, left upper [facility] Primary Care limb & Ancillary Services See 2022-07-18 00:00 Chronic obstructive pulmonary Walk-In Clinic Primary Care disease, unspecified & Ancillary Service s See 2022-07-18 00:00 Unspecified asthma, uncomplicated Walk -In Clinic Primary Care & Ancillary Services See 2022-07-18 00:00 Gastro-esophageal reflux disease Walk- In Clinic Primary Care without esophagitis & Ancillary Services See 2022-07-18 00:00 Other constipation Walk-In [facility] Care & Ancillary Services See 2022-07-18 00:00 Spinal stenosis, lumbar region Walk-In Clinic Primary Care & Ancillary Services See 2022-07-18 00:00 Other dorsalgia Walk-In Clinic [facility] Care & Ancillary Services See 2022-07-18 00:00 Other specified disorders of bone Walk -In Clinic Primary Care density and structure, right shoulder & Ancillary Services See 2022-07-18 00:00 Other injury of unspecified body Walk- In Clinic Primary Care region & Ancillary Services See 2022-07-27 00:00 Chronic obstructive lung disease Walk- In Clinic Primary Care & Ancillary Services See 2022-07-27 00:00 Backache Walk[facility]In [facility] [place] Care & Ancillary Services See 2022-07-27 00:00 Spinal stenosis of lumbar region Walk- In Clinic Primary Care & Ancillary Services See 2022-07-27 00:00 Gastroesophageal reflux disease Walk-I n Clinic Primary Care & Ancillary Services See 2022-07-27 00:00 Chronic constipation Walk-In Clinic [facility] Care & Ancillary Services See 2022-07-27 00:00 Hallucinogen abuse, unspecified use [facility] Primary Care & Ancillary Services See 2022-07-27 00:00 Migraine, unspecified, without Walk-In Clinic Primary Care mention of intractable migraine, & Ancil heike Services See without mention of status migrainosus 2022-07-27 00:00 Carpal tunnel syndrome Walk-In Clinic Primary Care & Ancillary Services See 2022-07-27 00:00 History of substance abuse Walk-In [facility] Primary Care & Ancillary Services See 2022-07-27 00:00 Migraine Walk-In [facility] Care & Ancillary Services See 2022-07-27 00:00 Bone density finding Walk-In Clinic [facility] Care & Ancillary Services See 2022-07-27 00:00 Asthma, unspecified [facility]In [facility] [place] [facility] Care & Ancillary Services See 2022-07-27 00:00 Chronic airway obstruction, not Walk-I n Clinic Primary Care elsewhere classified & Ancillary Service s See 2022-07-27 00:00 Viral hepatitis C Walk-In [facility] Care & Ancillary Services See 2022-07-27 00:00 Esophageal reflux Walk-In [facility] & Ancillary Services See 2022-07-27 00:00 Nerve injury Walk-In [facility] & Ancillary Services See 2022-07-27 00:00 Spinal stenosis of lumbar region Walk- In Clinic Primary Care without neurogenic claudication & Ancill priya Services See 2022-07-27 00:00 Backache, unspecified Walk-In [facility] Care & Ancillary Services See 2022-07-27 00:00 Injury to nerves, unspecified site [facility] Primary [facility] & Ancillary Services See 2022-07-27 00:00 Reactive airway disease Walk-In Clinic Primary Care & Ancillary Services See 2022-07-27 00:00 Unspecified viral hepatitis C Walk-In Clinic Primary Care without hepatic coma & Ancillary Service s See 2022-07-27 00:00 Other psychoactive substance Walk-In C linic Primary Care dependence, in remission & Ancillary Ser vices See 2022-07-27 00:00 Borderline personality disorder Walk-I n Clinic Primary Care & Ancillary Services See 2022-07-27 00:00 Migraine, unspecified, not Walk-In [facility] Primary Care intractable, without status & Ancillary Services See migrainosus 2022-07-27 00:00 Carpal tunnel syndrome, right upper [facility]-In Clinic Primary Care limb & Ancillary Services See 2022-07-27 00:00 Carpal tunnel syndrome, left upper [facility] Primary Care limb & Ancillary Services See 2022-07-27 00:00 Chronic obstructive pulmonary Walk-In Clinic Primary Care disease, unspecified & Ancillary Service s See 2022-07-27 00:00 Unspecified asthma, uncomplicated Walk -In Clinic Primary Care & Ancillary Services See 2022-07-27 00:00 Gastro-esophageal reflux disease Walk- In Clinic Primary Care without esophagitis & Ancillary Services See 2022-07-27 00:00 Other constipation Walk-In [facility] Care & Ancillary Services See 2022-07-27 00:00 Spinal stenosis, lumbar region Walk-In Clinic Primary Care & Ancillary Services See 2022-07-27 00:00 Other dorsalgia Walk-In Clinic [facility] Care & Ancillary Services See 2022-07-27 00:00 Other specified disorders of bone Walk -In Clinic Primary Care density and structure, right shoulder & Ancillary Services See 2022-07-27 00:00 Other injury of unspecified body Walk- In Clinic Primary Care region & Ancillary Services See 2022-07-29 00:00 Chronic obstructive lung disease Walk- In Clinic Primary Care & Ancillary Services See 2022-07-29 00:00 Backache Walk-In Clinic [facility] Care & Ancillary Services See 2022-07-29 00:00 Spinal stenosis of lumbar region Walk- In Clinic Primary Care & Ancillary Services See 2022-07-29 00:00 Gastroesophageal reflux disease Walk-I n Clinic Primary Care & Ancillary Services See 2022-07-29 00:00 Chronic constipation Walk-In Clinic [facility] Care & Ancillary Services See 2022-07-29 00:00 Hallucinogen abuse, unspecified use [facility] Primary Care & Ancillary Services See 2022-07-29 00:00 Migraine, unspecified, without Walk-In Clinic Primary Care mention of intractable migraine, & Ancil heike Services See without mention of status migrainosus 2022-07-29 00:00 Carpal tunnel syndrome Walk-In Clinic Primary Care & Ancillary Services See 2022-07-29 00:00 History of substance abuse Walk-In [facility] Primary Care & Ancillary Services See 2022-07-29 00:00 Migraine Walk[facility]In [facility] [place] Care & Ancillary Services See 2022-07-29 00:00 Bone density finding Walk-In Clinic [facility] Care & Ancillary Services See 2022-07-29 00:00 Asthma, unspecified Walk-In Clinic [facility] Care & Ancillary Services See 2022-07-29 00:00 Chronic airway obstruction, not Walk-I n Clinic Primary Care elsewhere classified & Ancillary Service s See 2022-07-29 00:00 Viral hepatitis C Walk-In [facility] Care & Ancillary Services See 2022-07-29 00:00 Esophageal reflux Walk-In [facility] Care & Ancillary Services See 2022-07-29 00:00 Nerve injury Walk-In [facility] & Ancillary Services See 2022-07-29 00:00 Spinal stenosis of lumbar region Walk- In Clinic Primary Care without neurogenic claudication & Ancill priya Services See 2022-07-29 00:00 Backache, unspecified Walk-In [facility] Care & Ancillary Services See 2022-07-29 00:00 Injury to nerves, unspecified site [facility] Primary Care & Ancillary Services See 2022-07-29 00:00 Reactive airway disease Walk-In Clinic Primary Care & Ancillary Services See 2022-07-29 00:00 Unspecified viral hepatitis C Walk-In Clinic Primary Care without hepatic coma & Ancillary Service s See 2022-07-29 00:00 Other psychoactive substance Walk-In C linic Primary Care dependence, in remission & Ancillary Ser vices See 2022-07-29 00:00 Borderline personality disorder Walk-I n [facility] Primary Care & Ancillary Services See 2022-07-29 00:00 Migraine, unspecified, not [facility] Primary Care intractable, without status & Ancillary Services See migrainosus 2022-07-29 00:00 Carpal tunnel syndrome, right upper [facility]-In Clinic Primary Care limb & Ancillary Services See 2022-07-29 00:00 Carpal tunnel syndrome, left upper [facility] Primary Care limb & Ancillary Services See 2022-07-29 00:00 Chronic obstructive pulmonary Walk-In Clinic Primary Care disease, unspecified & Ancillary Service s See 2022-07-29 00:00 Unspecified asthma, uncomplicated Walk -In Clinic Primary Care & Ancillary Services [place] 2022-07-29 00:00 Gastro-esophageal reflux disease Walk- In Clinic Primary Care without esophagitis & Ancillary Services See 2022-07-29 00:00 Other constipation [facility] [place] Care & Ancillary Services See 2022-07-29 00:00 Spinal stenosis, lumbar region Walk-In Clinic Primary Care & Ancillary Services See 2022-07-29 00:00 Other dorsalgia [facility] [place] Care & Ancillary Services See 2022-07-29 00:00 Other specified disorders of bone Walk -In Clinic Primary Care density and structure, right shoulder & Ancillary Services See 2022-07-29 00:00 Other injury of unspecified body Walk- In Clinic Primary Care region & Ancillary Services See 2022-07-30 00:00 Chronic obstructive lung disease Walk- In Clinic Primary Care & Ancillary Services See 2022-07-30 00:00 Backache [facility] [place] [facility] & Ancillary Services See 2022-07-30 00:00 Spinal stenosis of lumbar region Walk- In Clinic Primary Care & Ancillary Services See 2022-07-30 00:00 Gastroesophageal reflux disease Walk-I n Clinic Primary Care & Ancillary Services See 2022-07-30 00:00 Chronic constipation [facility] Ancillary Services See 2022-07-30 00:00 Hallucinogen abuse, unspecified use [facility] Primary Care & Ancillary Services See 2022-07-30 00:00 Migraine, unspecified, without Walk-In Clinic Primary Care mention of intractable migraine, & Ancil heike Services See without mention of status migrainosus 2022-07-30 00:00 Carpal tunnel syndrome Walk-In Clinic Primary Care & Ancillary Services See 2022-07-30 00:00 History of substance abuse Walk-In [facility] Primary Care & Ancillary Services See 2022-07-30 00:00 Migraine Walk-In Clinic [facility] Care & Ancillary Services See 2022-07-30 00:00 Bone density finding [facility] Ancillary Services See 2022-07-30 00:00 Asthma, unspecified Walk-In Clinic [facility] Care & Ancillary Services See 2022-07-30 00:00 Chronic airway obstruction, not Walk-I n Clinic Primary Care elsewhere classified & Ancillary Service s See 2022-07-30 00:00 Viral hepatitis C Walk-In Clinic [facility] Care & Ancillary Services See 2022-07-30 00:00 Esophageal reflux Walk-In Clinic [facility] Care & Ancillary Services See 2022-07-30 00:00 Nerve injury Walk-In Clinic [facility] Care & Ancillary Services See 2022-07-30 00:00 Spinal stenosis of lumbar region Walk- In Clinic Primary Care without neurogenic claudication & Ancill priya Services See 2022-07-30 00:00 Backache, unspecified Walk-In Clinic [facility] Care & Ancillary Services See 2022-07-30 00:00 Injury to nerves, unspecified site [facility] & Ancillary Services See 2022-07-30 00:00 Reactive airway disease Walk-In Clinic Primary Care & Ancillary Services See 2022-07-30 00:00 Unspecified viral hepatitis C Walk-In Clinic Primary Care without hepatic coma & Ancillary Service s See 2022-07-30 00:00 Other psychoactive substance Walk-In C linic Primary Care dependence, in remission & Ancillary Ser vices See 2022-07-30 00:00 Borderline personality disorder Walk-I n [facility] Primary Care & Ancillary Services See 2022-07-30 00:00 Migraine, unspecified, not Walk-In [facility] Primary Care intractable, without status & Ancillary Services [place] migrainosus 2022-07-30 00:00 Carpal tunnel syndrome, right upper [facility]-In Clinic Primary Care limb & Ancillary Services See 2022-07-30 00:00 Carpal tunnel syndrome, left upper [facility] Primary Care limb & Ancillary Services See 2022-07-30 00:00 Chronic obstructive pulmonary Walk-In Clinic Primary Care disease, unspecified & Ancillary Service s [place] 2022-07-30 00:00 Unspecified asthma, uncomplicated Walk -In Clinic Primary Care & Ancillary Services See 2022-07-30 00:00 Gastro-esophageal reflux disease Walk- In Clinic Primary Care without esophagitis & Ancillary Services See 2022-07-30 00:00 Other constipation Walk-In Clinic [facility] Care & Ancillary Services See 2022-07-30 00:00 Spinal stenosis, lumbar region Walk-In Clinic Primary Care & Ancillary Services See 2022-07-30 00:00 Other dorsalgia Walk-In [facility] & Ancillary Services See 2022-07-30 00:00 Other specified disorders of bone Walk -In Clinic Primary Care density and structure, right shoulder & Ancillary Services See 2022-07-30 00:00 Other injury of unspecified body Walk- In Clinic Primary Care region & Ancillary Services See 2022-08-02 00:00 Chronic obstructive lung disease Walk- In Clinic Primary Care & Ancillary Services See 2022-08-02 00:00 Backache Walk-In [facility] Care & Ancillary Services See 2022-08-02 00:00 Spinal stenosis of lumbar region Walk- In Clinic Primary Care & Ancillary Services See 2022-08-02 00:00 Gastroesophageal reflux disease Walk-I n Clinic Primary Care & Ancillary Services See 2022-08-02 00:00 Chronic constipation Walk-In Clinic [facility] Care & Ancillary Services See 2022-08-02 00:00 Hallucinogen abuse, unspecified use [facility] Primary Care & Ancillary Services See 2022-08-02 00:00 Migraine, unspecified, without Walk-In Clinic Primary Care mention of intractable migraine, & Ancil heike Services See without mention of status migrainosus 2022-08-02 00:00 Carpal tunnel syndrome Walk-In Clinic Primary Care & Ancillary Services See 2022-08-02 00:00 History of substance abuse [facility]-In [facility] Care & Ancillary Services See 2022-08-02 00:00 Migraine Walk-In Clinic [facility] Care & Ancillary Services See 2022-08-02 00:00 Bone density finding [facility] & Ancillary Services See 2022-08-02 00:00 Asthma, unspecified [facility] Care & Ancillary Services See 2022-08-02 00:00 Chronic airway obstruction, not [facility] Primary Care elsewhere classified & Ancillary Service s See 2022-08-02 00:00 Viral hepatitis C [facility] Care & Ancillary Services See 2022-08-02 00:00 Esophageal reflux [facility] Care & Ancillary Services See 2022-08-02 00:00 Nerve injury [facility] Care & Ancillary Services See 2022-08-02 00:00 Spinal stenosis of lumbar region [facility]- [facility] Primary Care without neurogenic claudication & Ancill priya Services See 2022-08-02 00:00 Backache, unspecified [facility] Care & Ancillary Services See 2022-08-02 00:00 Injury to nerves, unspecified site [facility] See 2022-08-02 00:00 Reactive airway disease [facility] Primary Care & Ancillary Services See 2022-08-02 00:00 Unspecified viral hepatitis C [facility] Primary Care without hepatic coma & Ancillary Service s See 2022-08-02 00:00 Other psychoactive substance [facility]In C linic Primary Care dependence, in remission & Ancillary Ser vices See 2022-08-02 00:00 Borderline personality disorder [facility] Primary Care & Ancillary Services See 2022-08-02 00:00 Migraine, unspecified, not [facility] Primary Care intractable, without status & Ancillary Services [place] migrainosus 2022-08-02 00:00 Carpal tunnel syndrome, right upper [facility] Care limb & Ancillary Services See 2022-08-02 00:00 Carpal tunnel syndrome, left upper [facility] limb & Ancillary Services See 2022-08-02 00:00 Chronic obstructive pulmonary [facility] Primary Care disease, unspecified & Ancillary Service s [place] 2022-08-02 00:00 Unspecified asthma, uncomplicated [facility] Primary Care & Ancillary Services See 2022-08-02 00:00 Gastro-esophageal reflux disease [facility]- [facility] Primary Care without esophagitis & Ancillary Services See 2022-08-02 00:00 Other constipation Walk[facility]In [facility] Care & Ancillary Services See 2022-08-02 00:00 Spinal stenosis, lumbar region [facility] Primary Care & Ancillary Services See 2022-08-02 00:00 Other dorsalgia [facility] Care & Ancillary Services See 2022-08-02 00:00 Other specified disorders of bone [facility] Primary Care density and structure, right shoulder & Ancillary Services See 2022-08-02 00:00 Other injury of unspecified body [facility] Primary Care region & Ancillary Services See 2022-08-03 00:00 Chronic obstructive lung disease [facility] Primary Care & Ancillary Services See 2022-08-03 00:00 Backache Walk[facility] Care & Ancillary Services See 2022-08-03 00:00 Spinal stenosis of lumbar region [facility] Primary Care & Ancillary Services See 2022-08-03 00:00 Gastroesophageal reflux disease [facility] Primary Care & Ancillary Services See 2022-08-03 00:00 Chronic constipation [facility] Care & Ancillary Services See 2022-08-03 00:00 Hallucinogen abuse, unspecified use [facility] & Ancillary Services See 2022-08-03 00:00 Migraine, unspecified, without [facility] Primary Care mention of intractable migraine, & Ancil heike Services See without mention of status migrainosus 2022-08-03 00:00 Carpal tunnel syndrome [facility] Primary Care & Ancillary Services See 2022-08-03 00:00 History of substance abuse [facility] Primary Care & Ancillary Services See 2022-08-03 00:00 Migraine [facility] & Ancillary Services See 2022-08-03 00:00 Bone density finding [facility] & Ancillary Services See 2022-08-03 00:00 Asthma, unspecified [facility] Care & Ancillary Services See 2022-08-03 00:00 Chronic airway obstruction, not [facility] Primary Care elsewhere classified & Ancillary Service s See 2022-08-03 00:00 Viral hepatitis C [facility] & Ancillary Services See 2022-08-03 00:00 Esophageal reflux [facility] & Ancillary Services See 2022-08-03 00:00 Nerve injury [facility] & Ancillary Services See 2022-08-03 00:00 Spinal stenosis of lumbar region [facility] Primary Care without neurogenic claudication & Ancill priya Services See 2022-08-03 00:00 Backache, unspecified [facility] Care & Ancillary Services See 2022-08-03 00:00 Injury to nerves, unspecified site [facility] Services See 2022-08-03 00:00 Reactive airway disease [facility] Primary Care & Ancillary Services See 2022-08-03 00:00 Unspecified viral hepatitis C [facility] Primary Care without hepatic coma & Ancillary Service s See 2022-08-03 00:00 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, in remission & Ancillary Ser vices See 2022-08-03 00:00 Borderline personality disorder [facility] Primary Care & Ancillary Services See 2022-08-03 00:00 Migraine, unspecified, not [facility] Primary Care intractable, without status & Ancillary Services See migrainosus 2022-08-03 00:00 Carpal tunnel syndrome, right upper [facility] Primary Care limb & Ancillary Services See 2022-08-03 00:00 Carpal tunnel syndrome, left upper [facility] Primary Care limb & Ancillary Services See 2022-08-03 00:00 Chronic obstructive pulmonary [facility] Primary Care disease, unspecified & Ancillary Service s See 2022-08-03 00:00 Unspecified asthma, uncomplicated [facility] Primary Care & Ancillary Services See 2022-08-03 00:00 Gastro-esophageal reflux disease [facility]- [facility] Primary Care without esophagitis & Ancillary Services See 2022-08-03 00:00 Other constipation [facility] Care & Ancillary Services See 2022-08-03 00:00 Spinal stenosis, lumbar region [facility] Primary Care & Ancillary Services See 2022-08-03 00:00 Other dorsalgia [facility] & Ancillary Services See 2022-08-03 00:00 Other specified disorders of bone [facility] Primary Care density and structure, right shoulder & Ancillary Services See 2022-08-03 00:00 Other injury of unspecified body [facility] Primary Care region & Ancillary Services See 2022-08-12 00:00 Chronic obstructive lung disease [facility] Primary Care & Ancillary Services See 2022-08-12 00:00 Backache [facility] & Ancillary Services See 2022-08-12 00:00 Spinal stenosis of lumbar region [facility] Primary Care & Ancillary Services See 2022-08-12 00:00 Gastroesophageal reflux disease [facility] Primary Care & Ancillary Services See 2022-08-12 00:00 Chronic constipation [facility] & Ancillary Services See 2022-08-12 00:00 Hallucinogen abuse, unspecified use [facility] Care & Ancillary Services See 2022-08-12 00:00 Migraine, unspecified, without [facility] Primary Care mention of intractable migraine, & Ancil heike Services See without mention of status migrainosus 2022-08-12 00:00 Carpal tunnel syndrome [facility] Primary Care & Ancillary Services See 2022-08-12 00:00 History of substance abuse [facility] Care & Ancillary Services See 2022-08-12 00:00 Migraine [facility] & Ancillary Services See 2022-08-12 00:00 Bone density finding [facility] Care & Ancillary Services See 2022-08-12 00:00 Asthma, unspecified [facility] & Ancillary Services See 2022-08-12 00:00 Chronic airway obstruction, not [facility] Primary Care elsewhere classified & Ancillary Service s See 2022-08-12 00:00 Viral hepatitis C [facility] & Ancillary Services See 2022-08-12 00:00 Esophageal reflux [facility] & Ancillary Services See 2022-08-12 00:00 Nerve injury [facility] & Ancillary Services See 2022-08-12 00:00 Spinal stenosis of lumbar region [facility] Primary Care without neurogenic claudication & Ancill priya Services See 2022-08-12 00:00 Backache, unspecified [facility] Care & Ancillary Services See 2022-08-12 00:00 Injury to nerves, unspecified site [facility] & [facility] Services See 2022-08-12 00:00 Reactive airway disease [facility] Primary Care & Ancillary Services See 2022-08-12 00:00 Unspecified viral hepatitis C [facility] Primary Care without hepatic coma & Ancillary Service s See 2022-08-12 00:00 Other psychoactive substance [facility] C l[facility] Primary Care dependence, in remission & Ancillary Ser vices See 2022-08-12 00:00 Borderline personality disorder [facility] Primary Care & Ancillary Services See 2022-08-12 00:00 Migraine, unspecified, not [facility] Primary Care intractable, without status & Ancillary Services See migrainosus 2022-08-12 00:00 Carpal tunnel syndrome, right upper [facility] Primary Care limb & Ancillary Services See 2022-08-12 00:00 Carpal tunnel syndrome, left upper [facility] Primary Care limb & Ancillary Services See 2022-08-12 00:00 Chronic obstructive pulmonary [facility] Primary Care disease, unspecified & Ancillary Service s See 2022-08-12 00:00 Unspecified asthma, uncomplicated [facility] Primary Care & Ancillary Services See 2022-08-12 00:00 Gastro-esophageal reflux disease [facility]- In [facility] Primary Care without esophagitis & Ancillary Services See 2022-08-12 00:00 Other constipation [facility] [place] [facility] & Ancillary Services See 2022-08-12 00:00 Spinal stenosis, lumbar region [facility] Primary Care & Ancillary Services See 2022-08-12 00:00 Other dorsalgia Walk[facility]In Clinic [facility] Care & Ancillary Services See 2022-08-12 00:00 Other specified disorders of bone [facility] Primary Care density and structure, right shoulder & Ancillary Services See 2022-08-12 00:00 Other injury of unspecified body [facility] Primary Care region & Ancillary Services See 2022-08-17 00:00 Chronic obstructive lung disease [facility] Primary Care & Ancillary Services See 2022-08-17 00:00 Backache Walk[facility]In Clinic [facility] Care & Ancillary Services See 2022-08-17 00:00 Spinal stenosis of lumbar region [facility] Primary Care & Ancillary Services See 2022-08-17 00:00 Gastroesophageal reflux disease [facility] Primary Care & Ancillary Services See 2022-08-17 00:00 Chronic constipation [facility] & Ancillary Services See 2022-08-17 00:00 Hallucinogen abuse, unspecified use [facility] Primary Care & Ancillary Services See 2022-08-17 00:00 Migraine, unspecified, without [facility] Primary Care mention of intractable migraine, & Ancil heike Services See without mention of status migrainosus 2022-08-17 00:00 Carpal tunnel syndrome [facility] Primary Care & Ancillary Services See 2022-08-17 00:00 History of substance abuse Walk-In [facility] Primary Care & Ancillary Services See 2022-08-17 00:00 Migraine [facility] Care & Ancillary Services See 2022-08-17 00:00 Bone density finding [facility] Care & Ancillary Services See 2022-08-17 00:00 Asthma, unspecified [facility] Care & Ancillary Services See 2022-08-17 00:00 Chronic airway obstruction, not [facility] Primary Care elsewhere classified & Ancillary Service s See 2022-08-17 00:00 Viral hepatitis C [facility] & Ancillary Services See 2022-08-17 00:00 Esophageal reflux [facility] & Ancillary Services See 2022-08-17 00:00 Nerve injury [facility] & Ancillary Services See 2022-08-17 00:00 Spinal stenosis of lumbar region [facility] Primary Care without neurogenic claudication & Ancill priya Services See 2022-08-17 00:00 Backache, unspecified [facility] Care & Ancillary Services See 2022-08-17 00:00 Injury to nerves, unspecified site [facility] & Ancillary Services See 2022-08-17 00:00 Reactive airway disease [facility] Primary Care & Ancillary Services See 2022-08-17 00:00 Unspecified viral hepatitis C [facility] Primary Care without hepatic coma & Ancillary Service s [place] 2022-08-17 00:00 Other psychoactive substance [facility] C l[facility] Primary Care dependence, in remission & Ancillary Ser vices See 2022-08-17 00:00 Borderline personality disorder [facility] Primary Care & Ancillary Services See 2022-08-17 00:00 Migraine, unspecified, not [facility] Primary Care intractable, without status & Ancillary Services See migrainosus 2022-08-17 00:00 Carpal tunnel syndrome, right upper [facility] Primary Care limb & Ancillary Services See 2022-08-17 00:00 Carpal tunnel syndrome, left upper [facility] Primary Care limb & Ancillary Services See 2022-08-17 00:00 Chronic obstructive pulmonary [facility] Primary Care disease, unspecified & Ancillary Service s [place] 2022-08-17 00:00 Unspecified asthma, uncomplicated [facility] Primary Care & Ancillary Services See 2022-08-17 00:00 Gastro-esophageal reflux disease [facility]- In [facility] Primary Care without esophagitis & Ancillary Services See 2022-08-17 00:00 Other constipation [facility] Care & Ancillary Services See 2022-08-17 00:00 Spinal stenosis, lumbar region [facility] Primary Care & Ancillary Services See 2022-08-17 00:00 Other dorsalgia Walk[facility]In Clinic [facility] Care & Ancillary Services See 2022-08-17 00:00 Other specified disorders of bone [facility] Primary Care density and structure, right shoulder & Ancillary Services See 2022-08-17 00:00 Other injury of unspecified body [facility]- [facility] Primary Care region & Ancillary Services See Procedures date description facility 2022-06-09 00:00 Visit Code Hold [facility] & Ancillary Services See 2022-07-13 00:00 Visit Code Hold [facility] & Ancillary Services See Results/Labs test date author facility value unit interpret ation Result panel 1 (unknown) (no date) (unknown) Walk-In (no value) (units (unk nown) Clinic Primary unknown) Care & Ancillary Services See Result panel 2 (unknown) (no date) (unknown) Walk-In (no value) (units ([facility] nown) Clinic Primary unknown) Care & Ancillary Services See Result panel 3 (unknown) (no date) (unknown) Walk-In (no value) (units ([facility] nown) Clinic Primary unknown) Care & Ancillary Services See Result panel 4 (unknown) (no date) (unknown) Walk-In (no value) (units ([facility] nown) Clinic Primary unknown) Care & Ancillary Services See Result panel 5 (unknown) (no date) (unknown) Walk-In (no value) (units ([facility] nown) Clinic Primary unknown) Care & Ancillary Services See Result panel 6 (unknown) (no date) (unknown) Walk-In (no value) (units ([facility] nown) Clinic Primary unknown) Care & Ancillary Services See Result panel 7 (unknown) (no date) (unknown) Walk-In (no value) (units (unk nown) Clinic Primary unknown) Care & Ancillary Services See Result panel 8 (unknown) (no date) (unknown) Walk-In (no value) (units (unk nown) Clinic Primary unknown) Care & Ancillary Services See Result panel 9 (unknown) (no date) (unknown) Walk-In (no value) (units (unk nown) Clinic Primary unknown) Care & Ancillary Services See Result panel 10 (unknown) (no date) (unknown) Walk-In (no value) (units (unk nown) Clinic Primary unknown) Care & Ancillary Services See Result panel 11 (unknown) (no date) (unknown) Walk-In (no value) (units (unk nown) Clinic Primary unknown) Care & Ancillary Services See Result panel 12 (unknown) (no date) (unknown) Walk-In (no value) (units (unk nown) Clinic Primary unknown) Care & Ancillary Services See Result panel 13 (unknown) (no date) (unknown) Walk-In (no value) (units (unk nown) Clinic Primary unknown) Care & Ancillary Services See Result panel 14 (unknown) (no date) (unknown) Walk-In (no value) (units (unk nown) Clinic Primary unknown) Care & Ancillary Services See Result panel 15 (unknown) (no date) (unknown) Walk-In (no value) (units (unk nown) Clinic Primary unknown) Care & Ancillary Services See Result panel 16 (unknown) (no date) (unknown) Walk-In (no value) (units (unk nown) Clinic Primary unknown) Care & Ancillary Services See Result panel 17 (unknown) (no date) (unknown) Walk-In (no value) (units ([facility] nown) Clinic Primary unknown) Care & Ancillary Services See Result panel 18 (unknown) (no date) (unknown) Walk-In (no value) (units (unk nown) Clinic Primary unknown) Care & Ancillary Services See Result panel 19 (unknown) (no date) (unknown) Walk-In (no value) (units (unk nown) Clinic Primary unknown) Care & Ancillary Services See Result panel 20 (unknown) (no date) (unknown) Walk-In (no value) (units ([facility] nown) Clinic Primary unknown) Care & Ancillary Services See Result panel 21 (unknown) (no date) (unknown) Walk-In (no value) (units (unk nown) Clinic Primary unknown) Care & Ancillary Services See Result panel 22 (unknown) (no date) (unknown) Walk-In (no value) (units (unk nown) Clinic Primary unknown) Care & Ancillary Services See Result panel 23 (unknown) (no date) (unknown) Walk-In (no value) (units (unk nown) Clinic Primary unknown) Care & Ancillary Services See Result panel 24 (unknown) (no date) (unknown) Walk-In (no value) (units (unk nown) Clinic Primary unknown) Care & Ancillary Services See Result panel 25 (unknown) (no date) (unknown) Walk-In (no value) (units (unk nown) Clinic Primary unknown) Care & Ancillary Services See Result panel 26 (unknown) (no date) (unknown) Walk-In (no value) (units (unk nown) Clinic Primary unknown) Care & Ancillary Services See Result panel 27 (unknown) (no date) (unknown) Walk-In (no value) (units (unk nown) Clinic Primary unknown) Care & Ancillary Services See Result panel 28 (unknown) (no date) (unknown) Walk-In (no value) (units (unk nown) Clinic Primary unknown) Care & Ancillary Services See Result panel 29 (unknown) (no date) (unknown) Walk-In (no value) (units (unk nown) Clinic Primary unknown) Care & Ancillary Services See Result panel 30 (unknown) (no date) (unknown) Walk-In (no value) (units (unk nown) Clinic Primary unknown) Care & Ancillary Services See Result panel 31 (unknown) (no date) (unknown) Walk-In (no value) (units (unk nown) Clinic Primary unknown) Care & Ancillary Services See Result panel 32 (unknown) (no date) (unknown) Walk-In (no value) (units (unk nown) Clinic Primary unknown) Care & Ancillary Services See Result panel 33 (unknown) (no date) (unknown) Walk-In (no value) (units (unk nown) Clinic Primary unknown) Care & Ancillary Services See Result panel 34 (unknown) (no date) (unknown) Walk-In (no value) (units (unk nown) Clinic Primary unknown) Care & Ancillary Services See Result panel 35 (unknown) (no date) (unknown) Walk-In (no value) (units (unk nown) Clinic Primary unknown) Care & Ancillary Services See Result panel 36 (unknown) (no date) (unknown) Walk-In (no value) (units (unk nown) Clinic Primary unknown) Care & Ancillary Services See Result panel 37 (unknown) (no date) (unknown) Walk-In (no value) (units (unk nown) Clinic Primary unknown) Care & Ancillary Services See Result panel 38 (unknown) (no date) (unknown) Walk-In (no value) (units (unk nown) Clinic Primary unknown) Care & Ancillary Services See Result panel 39 (unknown) (no date) (unknown) Walk-In (no value) (units (unk nown) Clinic Primary unknown) Care & Ancillary Services See Result panel 40 (unknown) (no date) (unknown) Walk-In (no value) (units (unk nown) Clinic Primary unknown) Care & Ancillary Services See Result panel 41 (unknown) (no date) (unknown) Walk-In (no value) (units (unk nown) Clinic Primary unknown) Care & Ancillary Services See Result panel 42 (unknown) (no date) (unknown) Walk-In (no value) (units (unk nown) Clinic Primary unknown) Care & Ancillary Services See Result panel 43 (unknown) (no date) (unknown) Walk-In (no value) (units (unk nown) Clinic Primary unknown) Care & Ancillary Services See Result panel 44 (unknown) (no date) (unknown) Walk-In (no value) (units (unk nown) Clinic Primary unknown) Care & Ancillary Services See Result panel 45 (unknown) (no date) (unknown) Walk-In (no value) (units (unk nown) Clinic Primary unknown) Care & Ancillary Services See Result panel 46 (unknown) (no date) (unknown) Walk-In (no value) (units (unk nown) Clinic Primary unknown) Care & Ancillary Services See Result panel 47 (unknown) (no date) (unknown) Walk-In (no value) (units (unk nown) Clinic Primary unknown) Care & Ancillary Services See Result panel 48 (unknown) (no date) (unknown) Walk-In (no value) (units (unk nown) Clinic Primary unknown) Care & Ancillary Services See Result panel 49 (unknown) (no date) (unknown) Walk-In (no value) (units (unk nown) Clinic Primary unknown) Care & Ancillary Services See Result panel 50 (unknown) (no date) (unknown) Walk-In (no value) (units (unk nown) Clinic Primary unknown) Care & Ancillary Services See Result panel 51 (unknown) (no date) (unknown) Walk-In (no value) (units (unk nown) Clinic Primary unknown) Care & Ancillary Services See Result panel 52 (unknown) (no date) (unknown) Walk-In (no value) (units (unk nown) Clinic Primary unknown) Care & Ancillary Services See Result panel 53 (unknown) (no date) (unknown) Walk-In (no value) (units (unk nown) Clinic Primary unknown) Care & Ancillary Services See Result panel 54 (unknown) (no date) (unknown) Walk-In (no value) (units (unk nown) Clinic Primary unknown) Care & Ancillary Services See Result panel 55 (unknown) (no date) (unknown) Walk-In (no value) (units (unk nown) Clinic Primary unknown) Care & Ancillary Services See Result panel 56 (unknown) (no date) (unknown) Walk-In (no value) (units (unk nown) Clinic Primary unknown) Care & Ancillary Services See Result panel 57 (unknown) (no date) (unknown) Walk-In (no value) (units (unk nown) Clinic Primary unknown) Care & Ancillary Services See Result panel 58 (unknown) (no date) (unknown) Walk-In (no value) (units (unk nown) Clinic Primary unknown) Care & Ancillary Services See Result panel 59 (unknown) (no date) (unknown) Walk-In (no value) (units (unk nown) Clinic Primary unknown) Care & Ancillary Services See Result panel 60 (unknown) (no date) (unknown) Walk-In (no value) (units (unk nown) Clinic Primary unknown) Care & Ancillary Services See Result panel 61 (unknown) (no date) (unknown) Walk-In (no value) (units (unk nown) Clinic Primary unknown) Care & Ancillary Services See Result panel 62 (unknown) (no date) (unknown) Walk-In (no value) (units (unk nown) Clinic Primary unknown) Care & Ancillary Services See Result panel 63 (unknown) (no date) (unknown) Walk-In (no value) (units (unk nown) Clinic Primary unknown) Care & Ancillary Services See Result panel 64 (unknown) (no date) (unknown) Walk-In (no value) (units (unk nown) Clinic Primary unknown) Care & Ancillary Services See Result panel 65 (unknown) (no date) (unknown) Walk-In (no value) (units (unk nown) Clinic Primary unknown) Care & Ancillary Services See Result panel 66 (unknown) (no date) (unknown) Walk-In (no value) (units (unk nown) Clinic Primary unknown) Care & Ancillary Services See Result panel 67 (unknown) (no date) (unknown) Walk-In (no value) (units (unk nown) Clinic Primary unknown) Care & Ancillary Services See Result panel 68 (unknown) (no date) (unknown) Walk-In (no value) (units (unk nown) Clinic Primary unknown) Care & Ancillary Services See Result panel 69 (unknown) (no date) (unknown) Walk-In (no value) (units (unk nown) Clinic Primary unknown) Care & Ancillary Services See Result panel 70 (unknown) (no date) (unknown) Walk-In (no value) (units (unk nown) Clinic Primary unknown) Care & Ancillary Services See Result panel 71 (unknown) (no date) (unknown) Walk-In (no value) (units (unk nown) Clinic Primary unknown) Care & Ancillary Services See Result panel 72 (unknown) (no date) (unknown) Walk-In (no value) (units (unk nown) Clinic Primary unknown) Care & Ancillary Services See Result panel 73 (unknown) (no date) (unknown) [facility] (no value[facility] See Result panel 74 (unknown) (no date) (unknown) [facility] (no value) [facility] See Result panel 75 (unknown) (no date) (unknown) [facility] (no value) [facility] See Result panel 76 (unknown) (no date) (unknown) [facility] (no value) [facility] See Result panel 77 (unknown) (no date) (unknown) [facility] (no value) [facility] See Result panel 78 (unknown) (no date) (unknown) [facility] (no value) [facility] See Result panel 79 (unknown) (no date) (unknown) [facility] (no value) [facility] See Result panel 80 (unknown) (no date) (unknown) [facility] (no value) [facility] See Result panel 81 (unknown) (no date) (unknown) Walk-[facility] (no value) [facility] See Result panel 82 (unknown) (no date) (unknown) [facility] (no value) [facility] See Result panel 83 (unknown) (no date) (unknown) [facility] (no value) [facility] See Result panel 84 (unknown) (no date) (unknown) [facility] (no value) [facility] See Result panel 85 (unknown) (no date) (unknown) [facility] (no value) [facility] See Result panel 86 (unknown) (no date) (unknown) Walk-[facility] (no value) [facility] See Result panel 87 (unknown) (no date) (unknown) Walk-[facility] (no value) [facility]units [facility] See Result panel 88 (unknown) (no date) (unknown) Walk-[facility] (no value) [facility]units [facility] See Result panel 89 (unknown) (no date) (unknown) [facility] (no value) [facility] See Result panel 90 (unknown) (no date) (unknown) [facility] (no value) [facility] See Result panel 91 (unknown) (no date) (unknown) Walk-[facility] (no value) [facility] See Result panel 92 (unknown) (no date) (unknown) [facility] (no value) [facility] See Result panel 93 (unknown) (no date) (unknown) Walk-[facility] (no value) [facility] See Result panel 94 (unknown) (no date) (unknown) Walk-[facility] (no value) (units [facility] See Result panel 95 (unknown) (no date) (unknown) Walk-[facility] (no value) [facility] See Result panel 96 (unknown) (no date) (unknown) Walk-[facility] (no value) [facility] See Result panel 97 (unknown) (no date) (unknown) Walk-[facility] (no value) [facility] See Result panel 98 (unknown) (no date) (unknown) [facility] (no value) [facility] See Result panel 99 (unknown) (no date) (unknown) [facility] (no value) [facility] See Result panel 100 (unknown) (no date) (unknown) [facility] (no value) [facility] See Result panel 101 (unknown) (no date) (unknown) Walk-[facility] (no value) [facility] See Result panel 102 (unknown) (no date) (unknown) Walk-[facility] (no value) [facility] See Result panel 103 (unknown) (no date) (unknown) Walk-In (no value) [facility] Ese Result panel 104 (unknown) (no date) (unknown) Walk-[facility] (no value) [facility] See Result panel 105 (unknown) (no date) (unknown) Walk-[facility] (no value) [facility] See Result panel 106 (unknown) (no date) (unknown) Walk-[facility] (no value) [facility] See Result panel 107 (unknown) (no date) (unknown) Walk-[facility] (no value) [facility] See Result panel 108 (unknown) (no date) (unknown) [facility] (no value) [facility] See Result panel 109 (unknown) (no date) (unknown) [facility] (no value) [facility] See Result panel 110 (unknown) (no date) (unknown) Walk-[facility] (no value) [facility] See Result panel 111 (unknown) (no date) (unknown) [facility] (no value) [facility] See Result panel 112 (unknown) (no date) (unknown) Walk-[facility] (no value) [facility] See Result panel 113 (unknown) (no date) (unknown) [facility] (no value) [facility] See Result panel 114 (unknown) (no date) (unknown) [facility] (no value) [facility] See Result panel 115 (unknown) (no date) (unknown) Walk-[facility] (no value) [facility] See Result panel 116 (unknown) (no date) (unknown) Walk-[facility] (no value) [facility] See Result panel 117 (unknown) (no date) (unknown) [facility] (no value) [facility] See Result panel 118 (unknown) (no date) (unknown) Walk-[facility] (no value) [facility]units [facility] See Result panel 119 (unknown) (no date) (unknown) [facility] (no value) [facility] See Result panel 120 (unknown) (no date) (unknown) [facility] (no value) [facility] See Result panel 121 (unknown) (no date) (unknown) Walk-[facility] (no value) [facility] See Result panel 122 (unknown) (no date) (unknown) Walk-[facility] (no value) [facility] See Result panel 123 (unknown) (no date) (unknown) Walk-[facility] (no value) [facility]units [facility] See Result panel 124 (unknown) (no date) (unknown) [facility] (no value) [facility]units [facility] See Result panel 125 (unknown) (no date) (unknown) Walk-[facility] (no value) [facility] See Result panel 126 (unknown) (no date) (unknown) [facility] (no value) [facility]units [facility] See Result panel 127 (unknown) (no date) (unknown) [facility] (no value) [facility]units [facility] See Result panel 128 (unknown) (no date) (unknown) [facility] (no value) [facility] See Result panel 129 (unknown) (no date) (unknown) [facility] (no value) [facility] See Result panel 130 (unknown) (no date) (unknown) [facility] (no value) [facility] See Result panel 131 (unknown) (no date) (unknown) Walk-[facility] (no value) [facility]units [facility] See Result panel 132 (unknown) (no date) (unknown) [facility] (no value) [facility]units [facility] See Result panel 133 (unknown) (no date) (unknown) [facility] (no value) [facility] See Result panel 134 (unknown) (no date) (unknown) Walk-[facility] (no value) [facility]units [facility] See Result panel 135 (unknown) (no date) (unknown) Walk-[facility] (no value) [facility]units [facility] See Result panel 136 (unknown) (no date) (unknown) [facility] (no value) (units [facility] See Result panel 137 (unknown) (no date) (unknown) [facility] (no value) (units [facility] See Result panel 138 (unknown) (no date) (unknown) [facility] (no value) [facility]units [facility] See Result panel 139 (unknown) (no date) (unknown) [facility] (no value) ([facility] See Result panel 140 (unknown) (no date) (unknown) [facility] (no value) [facility] See Result panel 141 (unknown) (no date) (unknown) [facility] (no value) [facility]units [facility] See Result panel 142 (unknown) (no date) (unknown) [facility] (no value) [facility] See Result panel 143 (unknown) (no date) (unknown) [facility] (no value) [facility] See Result panel 144 (unknown) (no date) (unknown) [facility] (no value) [facility] See Result panel 145 (unknown) (no date) (unknown) [facility] (no value) [facility]units [facility] See Result panel 146 (unknown) (no date) (unknown) [facility] (no value) [facility]units [facility] See Result panel 147 (unknown) (no date) (unknown) [facility] (no value) [facility] See Result panel 148 (unknown) (no date) (unknown) [facility] (no value) [facility] See Result panel 149 (unknown) (no date) (unknown) [facility] (no value) [facility] See Result panel 150 (unknown) (no date) (unknown) Walk-[facility] (no value) [facility]units [facility] See Result panel 151 (unknown) (no date) (unknown) [facility] (no value) [facility] See Result panel 152 (unknown) (no date) (unknown) Walk-[facility] (no value) (units [facility] See Result panel 153 (unknown) (no date) (unknown) Walk-[facility] (no value) ([facility] See Result panel 154 (unknown) (no date) (unknown) Walk-[facility] (no value) ([facility] See Result panel 155 (unknown) (no date) (unknown) Walk-[facility] (no value) (units [facility] See Result panel 156 (unknown) (no date) (unknown) Walk-[facility] (no value) (units [facility] See Result panel 157 (unknown) (no date) (unknown) Walk-[facility] (no value) (units [facility] See Result panel 158 (unknown) (no date) (unknown) Walk-[facility] (no value) ([facility] See Result panel 159 (unknown) (no date) (unknown) Walk-[facility] (no value) [facility] See Result panel 160 (unknown) (no date) (unknown) Walk-[facility] (no value) ([facility] See Result panel 161 (unknown) (no date) (unknown) [facility] (no value) [facility] See Result panel 162 (unknown) (no date) (unknown) [facility] (no value) ([facility] See Result panel 163 (unknown) (no date) (unknown) [facility] (no value) ([facility] See Result panel 164 (unknown) (no date) (unknown) [facility] (no value) [facility] See Result panel 165 (unknown) (no date) (unknown) [facility] (no value) [facility] See Result panel 166 (unknown) (no date) (unknown) Walk-[facility] (no value) ([facility] See Result panel 167 (unknown) (no date) (unknown) [facility] (no value) [facility] See Result panel 168 (unknown) (no date) (unknown) [facility] (no value) [facility] See Result panel 169 (unknown) (no date) (unknown) [facility] (no value) [facility] See Result panel 170 (unknown) (no date) (unknown) [facility] (no value) [facility] See Result panel 171 (unknown) (no date) (unknown) [facility] (no value) [facility] See Result panel 172 (unknown) (no date) (unknown) [facility] (no value) ([facility] See Result panel 173 (unknown) (no date) (unknown) [facility] (no value) ([facility] See Result panel 174 (unknown) (no date) (unknown) [facility] (no value) ([facility] See Result panel 175 (unknown) (no date) (unknown) [facility] (no value) [facility] See Result panel 176 (unknown) (no date) (unknown) Walk-[facility] (no value) ([facility] See Result panel 177 (unknown) (no date) (unknown) [facility] (no value) ([facility] See Result panel 178 (unknown) (no date) (unknown) Walk-[facility] (no value) [facility] See Result panel 179 (unknown) (no date) (unknown) [facility] (no value) [facility] See Result panel 180 (unknown) (no date) (unknown) [facility] (no value) ([facility] See Result panel 181 (unknown) (no date) (unknown) [facility] (no value) (units [facility] See Result panel 182 (unknown) (no date) (unknown) [facility] (no value) ([facility] See Result panel 183 (unknown) (no date) (unknown) [facility] (no value) [facility] See Result panel 184 (unknown) (no date) (unknown) [facility] (no value) [facility] See Result panel 185 (unknown) (no date) (unknown) [facility] (no value) [facility] See Result panel 186 (unknown) (no date) (unknown) [facility] (no value) [facility] See Result panel 187 (unknown) (no date) (unknown) [facility] (no value) [facility] See Result panel 188 (unknown) (no date) (unknown) [facility] (no value) [facility] See Result panel 189 (unknown) (no date) (unknown) [facility] (no value) [facility] See Result panel 190 (unknown) (no date) (unknown) [facility] (no value) [facility] See Result panel 191 (unknown) (no date) (unknown) [facility] (no value) [facility] See Result panel 192 (unknown) (no date) (unknown) [facility] (no value) [facility] See Result panel 193 (unknown) (no date) (unknown) [facility] (no value) [facility] See Result panel 194 (unknown) (no date) (unknown) [facility] (no value) [facility] See Result panel 195 (unknown) (no date) (unknown) Walk-[facility] (no value) ([facility] See Result panel 196 (unknown) (no date) (unknown) Walk-[facility] (no value) ([facility] See Result panel 197 (unknown) (no date) (unknown) Walk-[facility] (no value) ([facility] See Result panel 198 (unknown) (no date) (unknown) [facility] (no value) [facility] See Result panel 199 (unknown) (no date) (unknown) Walk-[facility] (no value) ([facility] See Result panel 200 (unknown) (no date) (unknown) [facility] (no value) ([facility] See Result panel 201 (unknown) (no date) (unknown) Walk-[facility] (no value) ([facility] See Result panel 202 (unknown) (no date) (unknown) [facility] (no value) ([facility] See Result panel 203 (unknown) (no date) (unknown) [facility] (no value) ([facility] See Result panel 204 (unknown) (no date) (unknown) [facility] (no value) ([facility] See Result panel 205 (unknown) (no date) (unknown) [facility] (no value) ([facility] See Result panel 206 (unknown) (no date) (unknown) [facility] (no value) ([facility] See Result panel 207 (unknown) (no date) (unknown) [facility] (no value) ([facility] See Result panel 208 (unknown) (no date) (unknown) Walk-[facility] (no value) ([facility] See Result panel 209 (unknown) (no date) (unknown) Walk-[facility] (no value) [facility] See Result panel 210 (unknown) (no date) (unknown) [facility] (no value) [facility] See Result panel 211 (unknown) (no date) (unknown) [facility] (no value) [facility] See Social History date description facility 2022-06-09 00:00 Current every day smoker [facility] 2022-07-13 00:00 Current every day smoker [facility] Vital Signs date measurement value units 2022-06-09 00:00 BMI 18.83 kg/m2 2022-06-09 00:00 BP_diastolic 80 mmHg 2022-06-09 00:00 BP_systolic 140 mmHg 2022-06-09 00:00 heart_rate 96 /min 2022-06-09 00:00 height_metric 163.83 cm 2022-06-09 00:00 height_standard 64.5 in 2022-06-09 00:00 respiration_rate 16 /min 2022-06-09 00:00 temperature_metric 36.5 C 2022-06-09 00:00 temperature_standard 97.7 F 2022-06-09 00:00 weight_metric 50.35 kg 2022-06-09 00:00 weight_standard 111 lb 2022-07-13 00:00 height_metric 163.83 cm 2022-07-13 00:00 height_standard 64.5 in
--- NOTE | 2022-08-19 13:13 | XRAY Report ---
PROCEDURE: Hip w/Pelvis 2-3V LT INDICATIONS: fall/pain TECHNIQUE: AP pelvis with lateral view(s) of the left hip(s). COMPARISON: None. FINDINGS: Bones: No fractures or dislocations. Pelvic ring appears intact. No suspicious bony lesions. Well -aligned arthroplasty without hardware complication. Soft tissues: The visualized bowel gas pattern is normal. No suspicious soft tissue calcifications. IMPRESSION: Well-aligned arthroplasty without hardware complication. Reviewed by: Lux Diaz on 08/19/2022 1:12 PM PST Approved by: Lux Diaz on 08/19/2022 1:12 PM PST Station ID: [id number]
[2022-08-19] MEDS ORDERED: LIDOCAINE PATCH 5% TOP STA (13:24)
--- NOTE | 2022-08-19 13:26 | ED Physician Documentation ---
PD HPI LOWER EXT INJURY - Stated complaint Stated Complaint: GLF - Chief complaint Chief Complaint: Resp - History obtained from History obtained from: Patient - Additional information Additional information: Patient is a 56-year-old female presenting for evaluation of left hip pain that is been present for 2 to 3 days. Patient reports having a fall from a standing position. She did not hit her head or have LOC and she does not take blood thinners.She is here in the hospital to get Outpatient testing done for her pulmonary function. She was in the bathroom prior to triage and required assistance as she was feeling short of breath. She was found to be out of her oxygen which she normally uses.She is feeling much better now that she is back on her oxygen. Patient denies injuries elsewhere.She reports having bruising and swelling to the left hip area and has had a prior left hip replacement. However she states that the bruising and swelling have started to decrease In the last day.She has been able to ambulate at home since her injury. Review of Systems Constitutional: denies: Fever Cardiac: denies: Chest pain / pressure Respiratory: denies: Dyspnea GI: denies: Abdominal Pain Musculoskeletal: reports: Joint pain Neurologic: denies: Head injury PD PAST MEDICAL HISTORY - Past Medical History Cardiovascular: None Respiratory: COPD (with home MDIs and oxygen at 2-3 lpm NC continual. ), Emphysema Endocrine/Autoimmune: None GI: GERD [employer] SERVICES SUPERVISOR: None : Incontinence HEENT: None Psych: Other Musculoskeletal: Osteoarthritis, Osteoporosis, Chronic back pain - Past Surgical History Past Surgical History: Yes Ortho: Hip replacement, Spine surgery /[employer] SERVICES SUPERVISOR: Other - Present Medications Home Medications: Ambulatory Orders Medication Instructions Recorded Confirmed Ibuprofen [Motrin] 600 mg PO Q6H PRN #30 tab 10/07/13 05/28/14 Omeprazole 20 mg PO DAILY 10/07/13 05/28/14 Solifenacin Succinate [Vesicare] 10 mg PO DAILY 10/07/13 05/28/14 Venlafaxine ER [Effexor ER] 150 mg PO DAILY 10/07/13 12/21/21 Albuterol Sulfate [Proair Hfa 1 - 2 puffs INH Q4H PRN 12/21/21 12/21/21 Inhaler] Fluticasone/Vilanterol [Breo 1 puffs IH DAILY 12/21/21 12/21/21 Ellipta 100-25 Mcg INH] Ipratropium/Albuterol [Duoneb] 3 ml INH Q6H PRN #30 vial 12/21/21 buPROPion HCL [Bupropion Xl] 150 mg PO DAILY 12/21/21 12/21/21 ALPRAZolam [Xanax] 0.25 mg PO Q8H PRN #18 tablet 08/02/22 - Allergies Allergies/Adverse Reactions: Allergies Allergy/AdvReac Type Severity Reaction Status Date / Time acetaminophen AdvReac Severe migraines Verified 08/19/22 12:06 [From Darvocet-N 100] propoxyphene napsylate * AdvReac Severe migraines Verified 08/19/22 12:06 [From Hublishedcet-N 100] - Social History Does the pt smoke?: Yes Smoking Status: Current every day smoker Does the pt drink ETOH?: No Does the pt have substance abuse?: Yes - Immunizations Immunizations are current?: Yes PD ED PE NORMAL - General General: Alert and oriented X 3, No acute distress, Other (Elderly, frail- appearing) - HEENT HEENT: Atraumatic - Cardiac Cardiac: RRR - Respiratory Respiratory: No respiratory distress, Clear bilaterally - Abdomen Abdomen: Soft, Non tender - Extremities Extremities: Other (Large bruise present to left hip, normal range of motion without significant pain, distal pulses intact) Results - Vitals Vitals: Vital Signs - 24 hr 08/19/22 08/19/22 08/19/22 12:00 12:11 12:16 Temperature 36.8 C Heart Rate 101 H 98 Respiratory 24 17 15 Rate Blood Pressure 137/80 H 168/75 H O2 Saturation 85 L If not protocol 4 : Oxygen Flow, liters/minute 08/19/22 08/19/22 13:23 13:37 Temperature 36.6 C Heart Rate 99 Respiratory 16 17 Rate Blood Pressure 161/73 H O2 Saturation 95 96 If not protocol 5 : Oxygen Flow, liters/minute Oxygen O2 Source Nasal cannula PD Medical Decision Making - ED course Complexity details: reviewed results, re-evaluated patient ED course: Patient presenting for evaluation of fall that occurred a few days ago and having left hip pain. She does have a large bruise to the area. An x-ray was obtained which shows that her hardware appears intact with no signs of fracture or dislocation. She has been able to ambulate prior to arrival here in the emergency department. We discussed continued treatment with supportive care.She is on oxygen chronically and was initially a staff assist as she was feeling short of breath in the bathroom because her oxygen tank had run out. She is feeling better now that she is back on her oxygen. Patient is eager to make her outpatient appointment here today at 130. Departure - Departure Disposition: Home, Self Care Clinical Impression: Contusion of left hip Qualifiers: Encounter type: initial encounter Qualified Code(s): S70.02XA - Contusion of left hip, initial encounter Condition: Stable Instructions: ED Hematoma, ED Contusion Hip Comments: Your x-ray shows that your hardware in your hip is well aligned and there is no fracture. You do have a large contusion. Please continue with lidocaine patches, ice, rest. I would also recommend close follow-up with your primary care doctor. Discharge Date/Time: 08/19/22 13:38
[2022-08-19 13:38] VITALS: BP 161/73
== END 2022-08-19 13:38 | disposition home or self-care (01) ==
LOC: ED 11:51
DX: S70.02XA Contusion of left hip, initial encounter (principal); W18.30XA Fall on same level, unspecified, initial encounter; J44.9 Chronic obstructive pulmonary disease, unspecified; Z99.81 Dependence on supplemental oxygen; F17.200 Nicotine dependence, unspecified, uncomplicated
CPT/HCPCS: 73502; 99283; A9270

== ENCOUNTER 2022-09-03 12:40 | Outpatient (CLI) | payer MEDICARE, MEDICAID | END 2022-09-03 12:41 | disposition E | LOC: EMS 12:40 | DX: I46.9 Cardiac arrest, cause unspecified (principal) | CPT/HCPCS: A0425; A0428 ==